=== PATIENT | male | born 1935 | race Caucasian/White ===

== ENCOUNTER → 2018-03-20 16:23 | Outpatient (CLI) | payer MEDICARE, SELFPAY ==
[2018-03-20 16:52] LABS: Add Manual Diff / Slide Review NO; Basophils Percent Auto 0.8 % (0-2); Eosinophils Percent Auto 1.9 % (2-4); Hematocrit 51.1 % (41-53); Hemoglobin 17.7 g/dL (13.5-17.5); Lymphocytes Percent Auto 30.9 % (25-40); Mean Corpuscular HGB Conc 34.6 % (30-36); Mean Corpuscular Hemoglobin 32.8 PG (26-34); Mean Corpuscular Volume 94.8 fL (80-100); Monocytes Percent Auto 8.9 % (3-14); Neutrophils Absolute Auto 4000 /uL (3000-5900); Neutrophils Percent Auto 57.5 % (50-75); Platelet Count 259 X10^3/uL (150-400); Red Blood Cell Count 5.39 X10^6/uL (4.5-5.9); Red Cell Distribution Width 13.6 % (11.6-14.8); White Blood Cell Count 6.9 X10^3/uL (4.5-11.0)
[2018-03-20 16:59] LABS: INR 1.2 (0.9-1.3); Prothrombin Time 13.5 SECONDS (10.1-12.7)
[2018-03-20 17:02] LABS: PTT Partial Thromboplastin Tim 37 SECONDS (26.4-36.2)
[2018-03-20 17:05] LABS: BUN Creatinine Ratio 26.3 (6-22); Blood Urea Nitrogen 21 mg/dL (9-20); Calcium 9.8 mg/dL (8.4-10.2); Carbon Dioxide 27 mmol/L (22-32); Chloride 104 mmol/L (98-107); Estimated Glomerular Filt Rate > 60.0 mL/min (>60); Glucose 94 mg/dL (80-110); HEMOLYSIS 30 (0-50); Potassium 4.5 mmol/L (3.4-5.1); Sodium 142 mmol/L (137-145)
[2018-03-20 17:06] LABS: Hemoglobin A1C% w Est Avg Glu 5.3 % (4.0-6.0)
[2018-03-20 17:58] LABS: Appearance Urine UA CLEAR; Bilirubin Urine UA NEGATIVE (NEGATIVE); Color Urine UA YELLOW; Glucose Urine UA NEGATIVE (Normal); Ketones Urine UA 1+ (NEGATIVE); Leukocyte Esterase Urine UA TRACE (NEGATIVE); Nitrite Urine UA Negative (Negative); Occult Blood Urine UA TRACE-LYSED (Negative); Protein Urine UA TRACE (Negative); Specific Gravity Urine UA 1.025 (1.000-1.035); Urobilinogen Urine UA 0.2 E.U./dL (0.2)
[2018-03-20 18:06] LABS: Amorphous Sediment Urine 1+; Bacteria Urine Few (2-10); RBC Urine 0-1/HPF (0-5/HPF); Squamous Epithelial Cell Urine 1-5 /HPF; WBC Urine 10-30/HPF (0-5/HPF)
[2018-03-20 18:07] LABS: Culture Indicated Urine Specimen Cultured
== END ==
PROVIDERS: Family Provider Internal Medicine; PCP Internal Medicine; Visit Provider Internal Medicine
DX: Z01.812 Encounter for preprocedural laboratory examination (principal)
CPT/HCPCS: 36415; 80048; 81001; 83036; 85025; 85610; 85730; 87086

== ENCOUNTER → 2018-03-23 15:18 | Outpatient (REF) | payer MEDICARE, SELFPAY | LOC: LAB 15:18 | PROVIDERS: Family Provider Internal Medicine; PCP Internal Medicine; Visit Provider Internal Medicine | DX: Z01.812 Encounter for preprocedural laboratory examination (principal) | CPT/HCPCS: 87797 ==

== ENCOUNTER → 2018-03-26 11:28 | Outpatient (CLI) | payer MEDICARE, SELFPAY ==
--- NOTE | 2018-03-26 | DI.RAD.S_ITS ---
PROCEDURE: XR KUB INDICATIONS: KIDNEY STONES TECHNIQUE: One view of the abdomen acquired. COMPARISON: [facility], CT, IVP (ABD & PEL WWO CONTRAST), 02/20/2016, 9:01. [facility], CR, KUB XRAY (1 VIEW ABDOMEN), 02/16/2016, 7:40. FINDINGS: Surgical changes and devices: None. Bowel: Bowel gas pattern shows a mildly dilated loop of small intestine overlying the left midabdomen. Soft tissues: Calcifications in the left kidney are again identified, with a superior pole calculus measuring 2 cm in diameter and a lower pole calculus measuring 11 mm. No right renal calculi seen. Visualized solid organ contours appear normal in size. Numerous surgical clips in the pelvis. Bones: No suspicious bony lesions. Degenerative disc disease lumbar spine. IMPRESSION: 1. Left nephrolithiasis unchanged. 2. Mildly dilated small bowel loop overlying the left kidney is nonspecific but raises possibility of sentinel loop ileus. Dictated by: Mynor Murry M.D. on 03/26/2018 at 12:33 Approved by: Mynor Murry M.D. on 03/26/2018 at 12:37
[2018-03-26 12:56] LABS: Prostate Specific Antigen < 0.064 ng/mL (0.10-4.00)
== END ==
PROVIDERS: Family Provider Internal Medicine; PCP Internal Medicine; Visit Provider Specialist
DX: N40.1 Benign prostatic hyperplasia with lower urinary tract symptoms (principal); N20.0 Calculus of kidney
CPT/HCPCS: 36415; 74018; 84153

== ENCOUNTER → 2019-02-01 12:33 | Outpatient (CLI) | payer MEDICARE, OTHER, SELFPAY ==
--- NOTE | 2019-02-01 | DI.RAD.S_ITS ---
PROCEDURE: XR HIP W PEL IF DONE LT 2V INDICATIONS: LEFT KNEE/LEFT HIP PAIN TECHNIQUE: 2 views of the hip were acquired. COMPARISON: [facility], CR, [id number] W PEL IF PERFORMED, 10/09/2017, 8:12. FINDINGS: Bones: No fractures or dislocations. No suspicious bony lesions. The visualized pelvic ring appears intact. Normal-appearing left total hip arthroplasty. No evidence of device loosening or disruption. Soft tissues: No suspicious soft tissue calcifications or masses. IMPRESSION: Normal appearance after left total hip arthroplasty without evidence of device loosening or disruption. Dictated by: Solomon Qureshi M.D. on 02/01/2019 at 13:09 Approved by: Solomon Qureshi M.D. on 02/01/2019 at 13:10
--- NOTE | 2019-02-01 | DI.RAD.S_ITS ---
PROCEDURE: XR KNEE LT 3V INDICATIONS: LEFT KNEE/LEFT HIP PAIN TECHNIQUE: 3 views of the knee were acquired. COMPARISON: [facility], , KNEE 1-2 VIEWS RIGHT, 06/15/2007, 16:28. FINDINGS: Bones: No fractures or dislocations. No suspicious bony lesions. Soft tissues: No joint effusion. No suspicious soft tissue calcifications. IMPRESSION: Prior left total knee arthroplasty with normal alignment. No evidence of device loosening or disruption. Dictated by: Solomon Qureshi M.D. on 02/01/2019 at 13:10 Approved by: Solomon Qureshi M.D. on 02/01/2019 at 13:11
[2019-02-01 13:48] LABS: Add Manual Diff / Slide Review NO; Basophils Absolute Auto 0 /uL (0-100); Basophils Percent Auto 0.6 % (0-2); Eosinophils Absolute Auto 100 /uL (0-450); Hematocrit 47.8 % (41-53); Hemoglobin 16.5 g/dL (13.5-17.5); Lymphocytes Absolute Auto 2100 /uL (1100-4500); Lymphocytes Percent Auto 28.5 % (25-40); Mean Corpuscular HGB Conc 34.5 % (30-36); Mean Corpuscular Hemoglobin 32.7 PG (26-34); Mean Corpuscular Volume 94.8 fL (80-100); Monocytes Absolute Auto 700 /uL (0-900); Monocytes Percent Auto 9.5 % (3-14); Neutrophils Absolute Auto 4300 /uL (1500-7000); Neutrophils Percent Auto 59.4 % (50-75); Platelet Count 239 X10^3/uL (150-400); Red Blood Cell Count 5.05 X10^6/uL (4.5-5.9); Red Cell Distribution Width 13.1 % (11.6-14.8); White Blood Cell Count 7.2 X10^3/uL (4.5-11.0)
[2019-02-01 14:14] LABS: C-Reactive Protein Quant < 0.5 mg/dL (<1.0)
[2019-02-01 14:28] LABS: Erythrocyte Sedimentation Rate 1 MM/HR (0-15)
[2019-02-01 15:10] LABS: Vitamin B12 950 pg/mL (239-931)
== END ==
PROVIDERS: PCP Internal Medicine; Visit Provider Internal Medicine
DX: M79.605 Pain in left leg (principal); M25.552 Pain in left hip; M16.12 Unilateral primary osteoarthritis, left hip; E53.8 Deficiency of other specified B group vitamins; Z96.642 Presence of left artificial hip joint; Z96.652 Presence of left artificial knee joint
CPT/HCPCS: 36415; 73502; 73562; 82607; 82746; 85025; 85651; 86140

== ENCOUNTER → 2019-04-06 08:57 | Outpatient (CLI) | payer MEDICARE, OTHER, SELFPAY ==
--- NOTE | 2019-04-06 09:00 | DI.ECHO.S_ITS ---
Echocardiogram Report + + :Name: HARISH SWIFT Study Date: 04/06/2019 Height: 67 in : :Hospital Exam Location: [facility] Weight: 180 lb : : Gender: Male BSA: 1.9 m2 : :: 1935 Age: 83 yrs BP: 110/80 mmHg: :Reason For Study: Dyspnea : :Ordering Physician: <No : :Ordering Physician Selected> Performed By: Maryse Page : :Referring: JEAN-PAUL VASQUEZ : + + Interpretation Summary The patient was in normal sinus rhythm during the exam. The patient had frequent PACs during the exam. Patient had short burst of narrow QRS tachycardia as well. Further characterization difficult to make. Consider Holter monitor to make sure no significant arrhythmias like A. fib. The left ventricle is normal in size. The ejection fraction is estimated to be 50-55%. There is a significant dyssynchronous contraction pattern, consistent with a conduction abnormality. The right ventricle is grossly normal size. The right ventricular systolic function is normal. No significant valvular pathology. The ascending aorta is mild-moderately enlarged. The IVC is of normal diameter and collapses greater than 50% with a sniff. This suggests a low right atrial pressure of 3 mm Hg. Procedure: A two-dimensional transthoracic echocardiogram with color flow and Doppler was performed. The study quality was technically adequate. There is no prior echocardiogram noted for this patient. The patient had frequent PACs during the exam. The patient was in normal sinus rhythm during the exam. Patient had short burst of narrow QRS tachycardia. Further characterization difficult to make. Consider Holter monitor to make sure no significant arrhythmias like A. fib. Left Ventricle: The left ventricle is normal in size. Left ventricular wall thickness is normal. There is no thrombus. The ejection fraction is estimated to be 50-55%. There is a significant dyssynchronous contraction pattern, consistent with a conduction abnormality. Diastolic parameters suggest a relaxation abnormality of the left ventricle, consistent with probable normal filling pressures. Right Ventricle: The right ventricle is grossly normal size. The right ventricular systolic function is normal. Atria: The left atrium is moderately dilated. Right atrium not well visualized. The right atrium grossly appears normal in size. There is no Doppler evidence for an interatrial shunt. Mitral Valve: There is mild mitral annular calcification. There is trace mitral regurgitation. Aortic Valve: The aortic valve is trileaflet. The aortic valve opens well. There is no aortic valve stenosis. No aortic regurgitation is present. Tricuspid Valve: The tricuspid valve is normal. There is trace tricuspid regurgitation. Pulmonary artery pressures cannot be estimated because of the lack of a measurable TR jet velocity. Pulmonic Valve: The pulmonic valve is not well visualized. There is trace pulmonic regurgitation. Great Vessels: The aortic root is normal size. The ascending aorta is mildmoderately enlarged. The pulmonary is not well visualized. The IVC is of normal diameter and collapses greater than 50% with a sniff. This suggests a low right atrial pressure of 3 mm Hg. Pericardium/ Pleura There is no pericardial effusion. There is no pleural effusion. MMode/2D Measurements & Calculations LVIDd: 4.0 cm LVOT diam: 2.5 cm LVIDs: 2.7 cm Ao root diam: 3.9 cm FS: 31.5 % asc Aorta Diam: 4.1 cm EPSS: 0.40 cm Ao Arch Diam (Prox Trans): 3.0 cm IVSd: 0.85 cm LVPWd: 0.79 cm LV quinonez. diameter/BSA (cm/m^2): 2.1 LV sys. diameter/BSA (cm/m^2): 1.4 LA A2 area: 24.2 cm2 RA long axis: 4.7 cm LA A4 area: 25.0 cm2 RA area: 14.6 cm2 LA length (vol): 6.3 cm RA vol: 38.6 ml LA vol: 81.5 ml RA : 20.0 ml/m2 LA vol index: 42.2 ml/m2 IVC diam: 1.4 cm RVD1 (basal): 4.4 cm RVD2 (mid): 3.5 cm TAPSE: 2.9 cm Doppler Measurements & Calculations Ao V2 max: 105.5 cm/sec LVOT Max Roosevelt: 83.3 cm/sec Ao V2 mean: 70.2 cm/sec LV V1 max P.8 mmHg Ao max P.5 mmHg LV V1 VTI: 18.8 cm Ao mean P.3 mmHg HEATHER(I,D): 4.0 cm2 Ao V2 VTI: 23.0 cm HEATHER(V,D): 3.8 cm2 sev ratio: 0.82 HEATHER indexed to BSA (cm^2/m^2): 2.1 MV E max roosevelt: 56.4 cm/sec PA V2 max: 49.3 cm/sec MV A max roosevelt: 84.2 cm/sec PA V2 mean: 32.5 cm/sec MV E/A: 0.67 PA mean P.47 mmHg Med Peak E' Roosevelt: 4.6 cm/sec PA Accel Time: 0.05 sec E/E' med: 12.2 Lat Peak E' Roosevelt: 6.0 cm/sec E/E' lat: 9.3 E/e' average: 10.8 MV P1/2t: 62.5 msec MV P1/2t max roosevelt: 57.1 cm/sec SV(LVOT): 91.3 ml MVA(P1/2t): 3.5 cm2 _ Reading Physician:IRMA
== END ==
PROVIDERS: PCP Internal Medicine; Visit Provider Student in an Organized Health Care Education/Training Program
DX: R06.00 Dyspnea, unspecified (principal); I77.89 Other specified disorders of arteries and arterioles; R42 Dizziness and giddiness
CPT/HCPCS: 93306

== ENCOUNTER → 2019-04-21 13:22 | Outpatient (CLI) | payer MEDICARE, OTHER, SELFPAY ==
[2019-04-21 15:17] LABS: Add Manual Diff / Slide Review NO; Basophils Absolute Auto 0 /uL (0-100); Basophils Percent Auto 0.6 % (0-2); Eosinophils Absolute Auto 100 /uL (0-450); Eosinophils Percent Auto 1.8 % (2-4); Hematocrit 49.2 % (41-53); Hemoglobin 16.5 g/dL (13.5-17.5); Lymphocytes Absolute Auto 1800 /uL (1100-4500); Lymphocytes Percent Auto 31.3 % (25-40); Mean Corpuscular HGB Conc 33.7 % (30-36); Mean Corpuscular Hemoglobin 32.8 PG (26-34); Mean Corpuscular Volume 97.4 fL (80-100); Monocytes Absolute Auto 600 /uL (0-900); Monocytes Percent Auto 9.7 % (3-14); Neutrophils Absolute Auto 3300 /uL (1500-7000); Neutrophils Percent Auto 56.6 % (50-75); Platelet Count 240 X10^3/uL (150-400); Red Blood Cell Count 5.05 X10^6/uL (4.5-5.9); Red Cell Distribution Width 13.4 % (11.6-14.8); White Blood Cell Count 5.8 X10^3/uL (4.5-11.0)
[2019-04-21 15:24] LABS: BUN Creatinine Ratio 32.5 (6-22); Blood Urea Nitrogen 26 mg/dL (9-20); Calcium 10.1 mg/dL (8.4-10.2); Carbon Dioxide 27 mmol/L (22-32); Chloride 108 mmol/L (98-107); Estimated Glomerular Filt Rate > 60.0 mL/min (>60); Glucose 66 mg/dL (80-110); HEMOLYSIS 19 (0-50); Potassium 4.7 mmol/L (3.4-5.1); Sodium 142 mmol/L (137-145)
== END ==
PROVIDERS: PCP Internal Medicine; Visit Provider Internal Medicine
DX: R31.0 Gross hematuria (principal)
CPT/HCPCS: 36415; 80048; 85025; 87086

== ENCOUNTER → 2019-06-01 08:03 | Outpatient (CLI) | payer MEDICARE, OTHER, SELFPAY ==
--- NOTE | 2019-06-01 | DI.RAD.S_ITS ---
PROCEDURE: XR CHEST 2V INDICATIONS: COUGH TECHNIQUE: 2 views of the chest were acquired. COMPARISON: None. FINDINGS: Surgical changes and devices: None. Lungs and pleura: Lungs are clear. No pleural effusions or pneumothorax. Mediastinum: Mildly tortuous thoracic aorta is seen. Heart size is normal. Bones and chest wall: No suspicious bony abnormalities. Soft tissues appear unremarkable. IMPRESSION: No acute cardiopulmonary pathology. Dictated by: Andrey Amin M.D. on 06/01/2019 at 11:38 Approved by: Andrey Amin M.D. on 06/01/2019 at 11:43
[2019-06-01 09:43] LABS: Cholesterol 221 mg/dL (140-199); HDL Cholesterol 37 mg/dL (40-60); LDL Cholesterol Calculated 146 mg/dL (<100); Magnesium 1.8 mg/dL (1.6-2.3); Triglycerides 190 mg/dL (35-150)
[2019-06-01 09:44] LABS: B Type Natriuretic Peptide < 100 (<100)
== END ==
PROVIDERS: PCP Internal Medicine; Visit Provider Internal Medicine Cardiovascular Disease
DX: I48.0 Paroxysmal atrial fibrillation (principal); I49.1 Atrial premature depolarization; I47.1 Supraventricular tachycardia; R06.02 Shortness of breath; R05 Cough; Z13.220 Encounter for screening for lipoid disorders
CPT/HCPCS: 36415; 71046; 80061; 83735; 83880

== ENCOUNTER → 2019-06-29 07:50 | Outpatient (CLI) | payer MEDICARE, OTHER, SELFPAY ==
--- NOTE | 2019-06-29 | DI.NM.S_ITS ---
PROCEDURE: NM POLLY PERF SPECT REST & STR Rest and exercise myocardial perfusion SPECT with gated imaging and ejection fraction RADIOPHARMACEUTICAL: 24.7 mCi Tc-99m sestamibi IV at rest and 27.3 mCi Tc-99m sestamibi IV at peak exercise. A two day-protocol was performed. INDICATIONS: Shortness of breath TECHNIQUE: Radiopharmaceutical was injected at peak stress test, and also at rest. SPECT images were obtained. SPECT myocardial perfusion images were displayed in short axis, horizontal long axis, and vertical long axis views. Gated images were reviewed using [employer] software. COMPARISON: None. CARDIAC STRESS: A standard Jack treadmill exercise tolerance test was performed by the patient under the supervision of an attending staff. The patient exercised for 7 minutes and 24 seconds; functional aerobic impairment (DANICA) is -35%. Hemodynamic data: There is normal blood pressure and heart rate response to exercise stress. Patient achieved 88% of maximum predicted heart rate at peak exercise. Symptoms: Patient denied chest pain during exercise. EKG: No diagnostic EKG changes of ischemia; no ectopy. FINDINGS: Raw data: There is good myocardial labeling by radiotracer. No significant motion artifacts. Ccoa-fu-wxpdo ratio is 0.32 (normal is less than 0.38 for sestamibi tracer, and less than 0.50 for thallium tracer). Left ventricle function: Gated images demonstrate normal left ventricle wall thickening. No segmental wall motion abnormality. No transient ischemic dilation; TID is 0.91 (normal less than 1.3). The left ventricle resting end-diastolic volume is 81 mL. Left ventricle stress ejection fraction is 78%; normal values are above 45%. Myocardial perfusion: There is normal distribution of activity in the left and right ventricular myocardium. No fixed or reversible perfusion defects. IMPRESSION: Low risk, normal treadmill nuclear stress test. 1) No perfusion evidence of ischemia or infarction. 2) Normal left ventricular size, wall motion, and systolic function (post stress EF 78%). 3) No ECG evidence of ischemia. 4) No angina during the study. 5) Excellent exercise tolerance (8.5 METS, DANICA -35%). Target heart rate achieved. Appropriate hemodynamic response to exercise. 6) No prior nuclear stress test available for comparison. Dictated by: Alvarado Ruiz MD on 06/30/2019 at 16:19 Approved by: Alvarado Ruiz MD on 06/30/2019 at 16:22
--- NOTE | 2019-06-29 08:51 | PM.TREADMILL ---
Cardiac Stress Test Report Referral & Results Date Patient Seen: 06/29/19 Time Patient Seen: 08:30 Requesting provider: Blake Miles Indication: SOB Rest ECG: NSR Procedure Note: Today following both written and verbal informed consent the patient was exercised according to a standard Jack protocol patient went for a total of 7 minutes 24 seconds achieving a maximum heart rate of 120 maximum systolic blood pressure of 156. This is approximately 8.5 METs. Exercise was terminated at this point because of fatigue and orthopedic pain. Patient was also given Cardiolite through a previously started Hep-Lock IV by the model technician approximately 1 minute prior to the cessation of exercise. No signs or symptoms of angina. Excellent exercise capacity for age. No change in rhythm. O2 sat greater than 95%. Impression: Low probability for ischemia. Will await perfusion imaging. Please note: Actual ECG tracings can be found in the PACS system.
== END ==
PROVIDERS: PCP Internal Medicine; Visit Provider Internal Medicine Cardiovascular Disease
DX: R06.02 Shortness of breath (principal); I48.0 Paroxysmal atrial fibrillation
CPT/HCPCS: 78452; 93016; 93017; 93018; A9502

== ENCOUNTER → 2019-10-26 07:57 | Outpatient (CLI) | payer MEDICARE, OTHER, SELFPAY ==
--- NOTE | 2019-10-26 | DI.RAD.S_ITS ---
PROCEDURE: XR KUB INDICATIONS: KIDNEY STONE TECHNIQUE: One view of the abdomen acquired. COMPARISON: [facility], CR, XR KUB, 03/26/2018, 11:33. FINDINGS: Surgical changes and devices: Surgical clips are present within the pelvis. Left hip arthroplasty is grossly intact. Bowel: Bowel gas pattern is normal. Soft tissues: Staghorn calculi are redemonstrated projecting over the left upper quadrant, similar in size and location to the prior study dated 03/26/18. No other suspicious soft tissue calcifications. Bones: No suspicious bony lesions. IMPRESSION: Staghorn calculi presumably within the left kidney. Dictated by: Jaki Jimenez M.D. on 10/26/2019 at 14:19 Approved by: Jaki Jimenez M.D. on 10/26/2019 at 14:20
== END ==
PROVIDERS: PCP Internal Medicine; Visit Provider Specialist
DX: N20.0 Calculus of kidney (principal)
CPT/HCPCS: 74018

== ENCOUNTER 2019-11-25 11:34 | Outpatient (RCR) | payer MEDICARE, OTHER, SELFPAY ==
--- NOTE | 2019-12-01 09:38 | PT.OIE ---
Current Diagnoses Mixed incontinence (11/25/19) Visit Care Team Role Provider Type Chayito Cisneros MD Primary Care Provider Non-Staff Specialty: Internal Medicine Address: [address] [place] [address], [place], [address] Email: [email or web address] Gerald Dupree MD Attending Provider Physician Referring Provider Specialty: Urology Address: [address] [place] [address], [id number] Email: Physical Therapy Initial Evaluation PT-OP-A Visit Information Start: 11/25/19 12:08 Freq: Status: Active Protocol: Document 11/25/19 12:00 [facility] (Rec: 11/25/19 12:30 [facility] [id number]) Out-Patient Physical Therapy Visit Information Visit Information Visit Type Initial Evaluation Visit Note 84 year old male with history of prostate cancer and prostatectomy with c/o urinary leakage worse during the night Visit Start Time 12:00 Visit Stop Time 12:45 Total Visit Minutes 45 Visit Number 1 Evaluation Information Evaluation Date 11/25/19 PT-OP-B Current Condition Start: 11/25/19 12:08 Freq: Status: Active Protocol: Document 11/25/19 12:00 [facility] (Rec: 11/25/19 12:30 [facility] [id number]) Current Condition History of Current Condition Onset Date symptoms are worsening in the past 4-5 months Current Complaints urinary leakage with positional changes and leaking during the night History of Current Condition history of urinary leakage that happens mostly at night. He has a history of prostate cancer in 1991. His prostate was removed but not completely taken out. Then in 2002 he had radiation. He noticed that that after surgery he would have leakage in certain sitting positions. Every once in a while he will have leakage with standing bending over the sink. Now though he is experiencing symptoms of leakage at night. He will sleep through the night and wake up and be wet. He sleeps 10pm-6am. He used to have a urge that would wake him up at night and he would get up and void. Now he is not getting that urge. This has been happening for 4-5 months now. Wears a mini pad at night and this is wet when he wakes up. He does not need a mini pad during the day. Was recently diagnosed with Afib 6 months ago. He also has some new onset of edema in his LE He does have a history of left sided hip replacement in 2018 . Had a bladder scope and felt he didn't have any symptoms for a few days afterwards. At times he will wake up at 2-3 am and be pretty dry but then by 6 am he will be wet. Prior Treatments and Tests has had testing for post void residual and it is normal. Treatment Goals Patient/Caregiver Goals Goals include eliminating urinary leakage both during the day and at night Current Functional Impairments (Reported) Functional Limitations- ADL's leaking occurs with positional changes or with leaning over the sink to wash dishes Functional Limitations- Other leaking during the night sleeping PT-OP-I Pelvic Floor Start: 11/25/19 12:08 Freq: Status: Active Protocol: Document 11/25/19 12:00 [facility] (Rec: 12/01/19 09:24 [facility] [id number]) Pelvic Floor Assessment Urine Pelvic Floor Surgery prostatectomy Urinary Symptoms Incomplete Emptying Other Urinary Symptoms night time leakage Leakage Size Large Other Leakage Causes changing positions Voiding Frequency 4-5 times per day Nocturia yes and leaking at night Urine Pad Type Depends Contraction Ability Voluntary Contraction Weak Voluntary Relaxation Weak Comments Pelvic Floor Comments external palpation for pelvic floor contraction was performed today and Edmund has difficulty facilitating a pelvic floor contraction for more than a few seconds. Endurance training will be helpful for him PT-OP-J Posture/Palpation/Skin Start: 11/25/19 12:08 Freq: Status: Active Protocol: Document 11/25/19 17:19 [facility] (Rec: 11/25/19 17:21 [facility] [id number]) Palpation Assessment Location One Palpation Location supra pubic fasica Palpation Findings Soft Tissue Tightness Palpation Details There is scar tissue and myofascial restrictions across the suprapubic fascia PT-OP-M Strength Start: 11/25/19 12:08 Freq: Status: Active Protocol: Document 11/25/19 12:00 [facility] (Rec: 11/25/19 17:19 [facility] [id number]) Trunk Strength Trunk Manual Muscle Testing Testing Position Supine Flexion 3+ Fair+ Core Stabilization decreased ability to facilitate the pelvic floor or transverse abdominal musculature Hip Strength Hip Manual Muscle Testing Right Flexion (L2) 4 Good Extension (S1) 3 Fair Abduction 4 Good External Rotation 4 Good Left Flexion (L2) 4 Good Extension (S1) 3 Fair Abduction 3 Fair External Rotation 3 Fair PT-OP-Q Treatments Start: 11/25/19 14:25 Freq: Status: Active Protocol: Document 11/25/19 12:00 [facility] (Rec: 11/25/19 14:27 [facility] [id number]) Therapeutic Exercises Supine Exercises 3 Supine Exercise Name hip Roll outs with theraband Side bilateral Equipment Used level 2 theraband Reps/Minutes 2 x 10 reps 2 Supine Exercise Name bridges Side bilateral Reps/Minutes 2 x 10 reps 1 Supine Exercise Name pelvic floor isolations Reps/Minutes 10 reps holding 2-3 seconds resting 5 seconds 2 sets of 10 reps Self-Care/Home Management Treatment Education Patient Education Home Exercise Program Other Education education on toileting strategies to help improve the amount voided at night PT-OP-T Assessment and Plan Start: 11/25/19 12:08 Freq: Status: Active Protocol: Document 11/25/19 12:00 [facility] (Rec: 12/01/19 09:24 [facility] [id number]) Physical Therapy Assessment Rehab Potential Rehabilitation Potential Good Evaluation Complexity Number of Personal Factors/Comorbidities 0 Number of Body Systems Impaired 1-2 Clinical Presentation at Evaluation Stable Impairments Impairments Activity Tolerance,Functional Activities,Soft Tissue Mobility,Strength,Tone Goals Four Impairment Decreased hip strength Short Term Goal (STG) Edmund is educated on hip exercises especially for the hip ER and abductors that support the pelvis and help to improve bladder control STG Duration 5 weeks Three Impairment urinary leakage at night and with transitional movements Intermediate Goal (LTG) Edmund is able to sleep through the night without soaking through a pad, He also has improved support of the pelvic floor to reduce day time leakage with transitional movements LTG Duration 8 weeks Two Impairment incomplete emptying of the bladder Short Term Goal (STG) with MFR and education on stretches for the anterior abdominal wall Edmund is able to improve his voiding and emptying of his bladder STG Duration 5 weeks One Impairment pelvic floor weakness with limited endurance Short Term Goal (STG) pt is educated on endurance contractions of the pelvic floor for improved support of the bladder STG Duration 4 weeks Intermediate Goal (LTG) Edmund is able to sustain a pelvic floor contraction for 10 seconds in supine and 5-10 seconds in a standing position LTG Duration 8 weeks Assessment Summary Assessment Edmund presents to physical therapy today with symptoms of urinary incontinence. He will leak during the day with certain sitting positions or if leaning over the sink. He describes newer symptoms of leakage during the night and not being able to fully void. He has a history of prostate cancer with prostatectomy in 1991. He then needed radiation in 2002. He notes that after this time he did experience some leakage with transitional movements. He was recently diagnosed with A fib 6 months ago and has a history of a left sided hip replacement in 2018. He does note some swelling in his left LE towards the end of the day. He has recently seen urology and with a post void residual test he notes he has a large amount of residual urine remaining in his bladder . With examination today he is weak in his hips Left > Right, has tightness and scar tissue present in the suprapubic fascia surrounding the bladder, and has difficulty sustaining a pelvic floor contraction. His lower abdominal musculature is also very weak. Treatment will focus on both fully emptying the bladder and improved pelvic floor strength for endurance Physical Therapy Plan Frequency and Duration Frequency of Treatment 1x/Week Duration of Treatment 8 Plan of Care Start Date 11/25/19 Plan of Care End Date 01/20/20 Therapeutic Interventions Therapeutic Interventions Home Exercise Program,Manual Therapy,Neuromuscular Re- education,Patient/Caregiver Education,Self-Care/Home Management,Soft Tissue Mobilization,Therapeutic Exercises Modalities Biofeedback Next Visit Focus/Plan Next Note Type Treatment Note Next Visit Plan Work with EMG biofeedback for pelvic floor endurance contractions, MFR over the suprapubic fascia to improve mobility, begin hip strengthening exercises
--- NOTE | 2019-12-01 09:40 | PT.OPPOC ---
Physical, Occupational & Speech Therapy At [facility] Current Diagnoses Mixed incontinence (11/25/19) Visit Care Team Role Provider Type Chayito Cisneros MD Primary Care Provider Non-Staff Specialty: Internal Medicine Address: [address] [place] [address], [address] Email: [email or web address] Gerald Dupree MD Attending Provider Physician Referring Provider Specialty: Urology Address: [address] [place] [address], [id number] Email: Plan Of Care PT-OP-T Assessment and Plan Start: 11/25/19 12:08 Freq: Status: Active Protocol: Document 11/25/19 12:00 [facility] (Rec: 12/01/19 09:24 [facility] [email or web address]) Physical Therapy Assessment Rehab Potential Rehabilitation Potential Good Evaluation Complexity Number of Personal Factors/Comorbidities 0 Number of Body Systems Impaired 1-2 Clinical Presentation at Evaluation Stable Impairments Impairments Activity Tolerance,Functional Activities,Soft Tissue Mobility,Strength,Tone Goals Four Impairment Decreased hip strength Short Term Goal (STG) Edmund is educated on hip exercises especially for the hip ER and abductors that support the pelvis and help to improve bladder control STG Duration 5 weeks Three Impairment urinary leakage at night and with transitional movements Carburizing Furnace Operator Goal (LTG) Edmund is able to sleep through the night without soaking through a pad, He also has improved support of the pelvic floor to reduce day time leakage with transitional movements LTG Duration 8 weeks Two Impairment incomplete emptying of the bladder Short Term Goal (STG) with MFR and education on stretches for the anterior abdominal wall Edmund is able to improve his voiding and emptying of his bladder STG Duration 5 weeks One Impairment pelvic floor weakness with limited endurance Short Term Goal (STG) pt is educated on endurance contractions of the pelvic floor for improved support of the bladder STG Duration 4 weeks Carburizing Furnace Operator Goal (LTG) Edmund is able to sustain a pelvic floor contraction for 10 seconds in supine and 5-10 seconds in a standing position LTG Duration 8 weeks Assessment Summary Assessment Edmund presents to physical therapy today with symptoms of urinary incontinence. He will leak during the day with certain sitting positions or if leaning over the sink. He describes newer symptoms of leakage during the night and not being able to fully void. He has a history of prostate cancer with prostatectomy in 1991. He then needed radiation in 2002. He notes that after this time he did experience some leakage with transitional movements. He was recently diagnosed with A fib 6 months ago and has a history of a left sided hip replacement in 2018. He does note some swelling in his left LE towards the end of the day. He has recently seen urology and with a post void residual test he notes he has a large amount of residual urine remaining in his bladder . With examination today he is weak in his hips Left > Right, has tightness and scar tissue present in the suprapubic fascia surrounding the bladder, and has difficulty sustaining a pelvic floor contraction. His lower abdominal musculature is also very weak. Treatment will focus on both fully emptying the bladder and improved pelvic floor strength for endurance Physical Therapy Plan Frequency and Duration Frequency of Treatment 1x/Week Duration of Treatment 8 Plan of Care Start Date 11/25/19 Plan of Care End Date 01/20/20 Therapeutic Interventions Therapeutic Interventions Home Exercise Program,Manual Therapy,Neuromuscular Re- education,Patient/Caregiver Education,Self-Care/Home Management,Soft Tissue Mobilization,Therapeutic Exercises Modalities Biofeedback Next Visit Focus/Plan Next Note Type Treatment Note Next Visit Plan Work with EMG biofeedback for pelvic floor endurance contractions, MFR over the suprapubic fascia to improve mobility, begin hip strengthening exercises Plan of Care Dates Plan of Care Start Date 11/25/19 Plan of Care End Date 01/20/20 Electronically Signed by: Aimee Shah, PT 12/01/19 0814 Please Sign and Return: I have reviewed this Plan of Care and certify that the skilled therapy services above are required to meet the patient?s needs. Physician Signature Date Printed Name and Credentials Clinical Instructor Signature Printed Name and Credentials
--- NOTE | 2020-06-12 14:31 | PT.OPDS ---
Current Diagnoses Mixed incontinence (11/25/19) Visit Care Team Role Provider Type Chayito Cisneros MD Primary Care Provider Non-Staff Specialty: Internal Medicine Address: [address], [place], [address] Email: [email or web address] Gerald Dupree MD Attending Provider Physician Referring Provider Specialty: Urology Address: [facility] [place] [address], [address] Phone: Email: Visit Number Visit Number 1 Discharge Summary PT-OP-B Current Condition Start: 11/25/19 12:08 Freq: Status: Active Protocol: Document 11/25/19 12:00 [facility] (Rec: 11/25/19 12:30 [facility] [id number]) Current Condition History of Current Condition Onset Date symptoms are worsening in the past 4-5 months Current Complaints urinary leakage with positional changes and leaking during the night History of Current Condition history of urinary leakage that happens mostly at night. He has a history of prostate cancer in 1991. His prostate was removed but not completly taken out. Then in 2002 he had radiation. He noticed that that after surgery he would have leakage in certain sitting positions. Every once in a while he will have leakage with standing bending over the sink. Now though he is experiencing symptoms of leakage at night. He will sleep through the night and wake up and be wet. He sleeps 10pm-6am. He used to have a urge that would wake him up at night and he would get up and void. Now he is not getting that urge. This has been happening for 4-5 months now. Wears a mini pad at night and this is wet when he wakes up. He does not need a mini pad during the day. Was recently diagnosed with Afib 6 months ago. He also has some new onset of edema in his LE He does have a history of left sided hip replacement in 2018 . Had a bladder scope and felt he didn't have any symptoms for a few days afterwards. At times he will wake up at 2-3 am and be pretty dry but then by 6 am he will be wet. Prior Treatments and Tests has had testing for post void residual and it is normal. Treatment Goals Patient/Caregiver Goals Goals include eliminating urinary leakage both during the day and at night Current Functional Impairments (Reported) Functional Limitations- ADL's leaking occurs with positional changes or with leaning over the sink to wash dishes Functional Limitations- Other leaking during the night sleeping PT-OP-I Pelvic Floor Start: 11/25/19 12:08 Freq: Status: Active Protocol: Document 11/25/19 12:00 [facility] (Rec: 12/01/19 09:24 [facility] [email or web address]) Pelvic Floor Assessment Urine Pelvic Floor Surgery prostatectomy Urinary Symptoms Incomplete Emptying Other Urinary Symptoms night time leakage Leakage Size Large Other Leakage Causes changing positions Voiding Frequency 4-5 times per day Nocturia yes and leaking at night Urine Pad Type Depends Contraction Ability Voluntary Contraction Weak Voluntary Relaxation Weak Comments Pelvic Floor Comments external palpation for pelvic floor contraction was performed today and Edmund has difficulty facilitating a pelvic floor contraction for more than a few seconds. Endurance training will be helpful for him PT-OP-J Posture/Palpation/Skin Start: 11/25/19 12:08 Freq: Status: Active Protocol: Document 11/25/19 17:19 [facility] (Rec: 11/25/19 17:21 [facility] [email or web address]) Palpation Assessment Location One Palpation Location supra pubic fasica Palpation Findings Soft Tissue Tightness Palpation Details There is scar tissue and myofascial restrictions across the suprapubic fascia PT-OP-M Strength Start: 11/25/19 12:08 Freq: Status: Active Protocol: Document 11/25/19 12:00 [facility] (Rec: 11/25/19 17:19 [facility] [email or web address]) Trunk Strength Trunk Manual Muscle Testing Testing Position Supine Flexion 3+ Fair+ Core Stabilization decreased ability to facilitate the pelvic floor or transverse abdominal musculature Hip Strength Hip Manual Muscle Testing Right Flexion (L2) 4 Good Extension (S1) 3 Fair Abduction 4 Good External Rotation 4 Good Left Flexion (L2) 4 Good Extension (S1) 3 Fair Abduction 3 Fair External Rotation 3 Fair PT-OP-T Assessment and Plan Start: 11/25/19 12:08 Freq: Status: Active Protocol: Document 06/12/20 14:30 [facility] (Rec: 06/12/20 14:31 [facility] [email or web address]) Physical Therapy Assessment Assessment Summary Assessment Edmund has not been seen since his initial evaluation in PT. He canceled his follow up appointment with PT. He will be DC at this time Physical Therapy Plan Discharge Physical Therapy Discharge Reasons No Longer Attending PT
== END 2020-06-13 10:58 ==
LOC: PHYS 11:34
PROVIDERS: PCP Internal Medicine; Referring Provider Specialist; Visit Provider Specialist
DX: N39.46 Mixed incontinence (principal)
CPT/HCPCS: 97110; 97161

== ENCOUNTER → 2020-02-17 19:16 | Outpatient (ROUT) | payer MEDICARE, OTHER, SELFPAY | PROVIDERS: PCP Internal Medicine; Visit Provider Internal Medicine | DX: R39.9 Unspecified symptoms and signs involving the genitourinary system (principal) | CPT/HCPCS: 87077; 87086; 87186 ==

== ENCOUNTER → 2020-04-04 08:31 | Outpatient (CLI) | payer MEDICARE, OTHER, SELFPAY ==
[2020-04-06 04:08] LABS: COVID19 Sendout Not Detected (Not Detected)
== END ==
PROVIDERS: PCP Internal Medicine; Visit Provider Physician Assistant
DX: R05 Cough (principal)
CPT/HCPCS: 87635

== ENCOUNTER → 2020-05-19 13:27 | Outpatient (CLI) | payer MEDICARE, OTHER, SELFPAY ==
[2020-05-19 14:38] LABS: RBC Morphology Normal Morphology; Total Cells Counted 100
[2020-05-19 14:39] LABS: Appearance Urine UA CLEAR; Bilirubin Urine UA NEGATIVE (NEGATIVE); Color Urine UA YELLOW; Glucose Urine UA NEGATIVE (Negative); Ketones Urine UA NEGATIVE (NEGATIVE); Leukocyte Esterase Urine UA 2+ (NEGATIVE); Nitrite Urine UA POSITIVE (Negative); Occult Blood Urine UA 3+ (Negative); Protein Urine UA TRACE (Negative); Urobilinogen Urine UA 0.2 E.U./dL (0.2)
[2020-05-19 14:43] LABS: Erythrocyte Sedimentation Rate 29 MM/HR (0-15)
[2020-05-19 14:44] LABS: Hematocrit 43.9 % (41-53); Hemoglobin 14.9 g/dL (13.5-17.5); Mean Corpuscular Hemoglobin 31.7 PG (26-34); Mean Corpuscular Volume 93.4 fL (80-100); Neutrophils Absolute Manual 3599 /uL (3000-5900); Platelet Count 287 X10^3/uL (150-400); White Blood Cell Count 5.9 X10^3/uL (4.5-11.0)
[2020-05-19 14:58] LABS: Alanine Aminotransferase 19 IU/L (<50); Albumin Globulin Ratio 1.3 (1.0-2.8); Alkaline Phosphatase 116 U/L (38-126); Aspartate Aminotransferase 25 IU/L (17-59); BUN Creatinine Ratio 21.1 (6-22); Bilirubin Total 0.6 mg/dL (0.2-1.3); Blood Urea Nitrogen 19 mg/dL (9-20); Calcium 9.9 mg/dL (8.4-10.2); Carbon Dioxide 30 mmol/L (22-32); Chloride 104 mmol/L (98-107); Estimated Glomerular Filt Rate > 60.0 mL/min (>60); Globulin 3.2 g/dL (1.7-4.1); Glucose 127 mg/dL (80-110); HEMOLYSIS < 15 (0-50); Potassium 4.3 mmol/L (3.4-5.1); Sodium 141 mmol/L (137-145); Total Protein 7.2 g/dL (6.3-8.2); Uric Acid 5.1 mg/dL (3.5-8.5)
[2020-05-19 15:07] LABS: NT-proBNP (BNP-Adult 18+) 140 pg/mL (<450)
[2020-05-19 15:08] LABS: Bacteria Urine Moderate (10-30); Culture Indicated Urine Cult Not Indicated; RBC Urine >100/HPF (0-5/HPF); Urine Comments CS ALREADY ORDERED; WBC Urine >100/HPF (0-5/HPF)
[2020-05-19 15:47] LABS: Vitamin B12 > 1000 pg/mL (239-931)
[2020-05-22 14:37] LABS: SARS-CoV19- IgM Negative (Negative)
[2020-05-22 17:36] LABS: Albumin 3.3 g/dL (2.9-4.4); Alpha-1-Globulin 0.3 g/dL (0.0-0.4); Alpha-2-Globulin 0.9 g/dL (0.4-1.0); Globulin Total 3.2 g/dL (2.2-3.9); Protein, Total 6.5 g/dL (6.0-8.5)
[2020-05-22 18:58] LABS: SARS CoV19 IgA Negative (Negative)
== END ==
PROVIDERS: PCP Internal Medicine; Referring Provider Internal Medicine; Visit Provider Internal Medicine
DX: R06.00 Dyspnea, unspecified (principal); Z87.898 Personal history of other specified conditions; R31.9 Hematuria, unspecified; G62.9 Polyneuropathy, unspecified; M10.9 Gout, unspecified; I48.91 Unspecified atrial fibrillation
CPT/HCPCS: 36415; 80053; 81001; 82607; 83880; 84155; 84165; 84550; 85025; 85651; 86769; 87077; 87086; 87186

== ENCOUNTER → 2020-12-05 19:54 | Outpatient (ROUT) | payer MEDICARE, OTHER, SELFPAY ==
[2020-12-05 20:05] LABS: Add Manual Diff / Slide Review NO; Basophils Absolute Auto 100 /uL (0-100); Basophils Percent Auto 1.2 % (0-2); Eosinophils Absolute Auto 100 /uL (0-450); Eosinophils Percent Auto 2.3 % (2-4); Hematocrit 46.7 % (41-53); Hemoglobin 15.5 g/dL (13.5-17.5); Lymphocytes Absolute Auto 1900 /uL (1100-4500); Lymphocytes Percent Auto 36.7 % (25-40); Mean Corpuscular HGB Conc 33.3 % (30-36); Mean Corpuscular Hemoglobin 32.1 PG (26-34); Mean Corpuscular Volume 96.4 fL (80-100); Monocytes Absolute Auto 500 /uL (0-900); Monocytes Percent Auto 8.8 % (3-14); Neutrophils Absolute Auto 2600 /uL (1500-7000); Platelet Count 241 X10^3/uL (150-400); Red Blood Cell Count 4.85 X10^6/uL (4.5-5.9); Red Cell Distribution Width 13.6 % (11.6-14.8); White Blood Cell Count 5.1 X10^3/uL (4.5-11.0)
[2020-12-05 20:12] LABS: Alanine Aminotransferase 21 IU/L (<50); Albumin Globulin Ratio 1.5 (1.0-2.8); Alkaline Phosphatase 95 U/L (38-126); Aspartate Aminotransferase 31 IU/L (17-59); BUN Creatinine Ratio 21.2 (6-22); Bilirubin Total 1.1 mg/dL (0.2-1.3); Blood Urea Nitrogen 18 mg/dL (9-20); Calcium 9.5 mg/dL (8.4-10.2); Carbon Dioxide 25 mmol/L (22-32); Chloride 106 mmol/L (98-107); Estimated Glomerular Filt Rate > 60.0 mL/min (>60); Globulin 2.6 g/dL (1.7-4.1); Glucose 105 mg/dL (80-110); HEMOLYSIS < 15 (0-50); Sodium 137 mmol/L (137-145); Total Protein 6.6 g/dL (6.3-8.2); Uric Acid 6.6 mg/dL (3.5-8.5)
== END ==
PROVIDERS: PCP Internal Medicine; Visit Provider Internal Medicine
DX: M10.9 Gout, unspecified (principal); Z85.46 Personal history of malignant neoplasm of prostate; I48.20 Chronic atrial fibrillation, unspecified
CPT/HCPCS: 80053; 84550; 85025

== ENCOUNTER → 2021-03-28 12:02 | Outpatient (CLI) | payer MEDICARE, OTHER, SELFPAY ==
[2021-03-28 13:00] LABS: Prostate Specific Antigen < 0.064 ng/mL (0.10-4.00)
== END ==
PROVIDERS: PCP Internal Medicine; Referring Provider Specialist; Visit Provider Specialist
DX: N40.0 Benign prostatic hyperplasia without lower urinary tract symptoms (principal)
CPT/HCPCS: 36415; 84153

== ENCOUNTER → 2021-04-04 09:50 | Outpatient (CLI) | payer MEDICARE, OTHER, SELFPAY | PROVIDERS: PCP Internal Medicine; Visit Provider Specialist | DX: N39.0 Urinary tract infection, site not specified (principal); N30.40 Irradiation cystitis without hematuria; R31.29 Other microscopic hematuria; Z85.46 Personal history of malignant neoplasm of prostate; Z87.442 Personal history of urinary calculi; Z68.28 Body mass index [BMI] 28.0-28.9, adult | CPT/HCPCS: 81002; 87086; 99213; 99214 ==

== ENCOUNTER → 2022-03-27 13:19 | Outpatient (CLI) | payer MEDICARE, OTHER, SELFPAY ==
--- NOTE | 2022-03-27 | DI.ECHO.S_ITS ---
[place] +---------+ Hospital +---------+ : : [address] : : : : [id number] : : : : Phone: [phone]+ Echocardiogram Report + + :Name: HARISH SWIFT Study Date: 03/27/2022 Height: 65 in : :[facility] ReadingLocation: Weight: 180 lb : : Gender: Male BSA: 1.9 m2 : :: 1935 Age: 86 yrs BP: 141/97 mmHg: :Reason For Study: SHORTNESS OF BREATH : :Ordering Physician: GAYATHRI, : :RAKEL Miranda Performed By: Ruth Alicea : :Referring: RAKEL TRINH : + + Interpretation Summary The ejection fraction is estimated to be 55-60%. Diastolic function is indeterminate. The right ventricle is mildly dilated. The right ventricular systolic function is normal. There is mild mitral regurgitation. Pulmonary artery pressures cannot be estimated. The ascending aorta is mildly enlarged. Paired to the prior study dated 04/06/2019, there is a slight increase in ejection fraction. Procedure: A two-dimensional transthoracic echocardiogram with color flow and Doppler was performed. The study quality was technically adequate. Comparison is made with the echocardiogram of 04/06/2019. The patient was in sinus rhythm with heart rates between 60-77 bpm during the exam. Left Ventricle: Proximal septal thickening is noted. The left ventricle is normal in size. The ejection fraction is estimated to be 55-60%. Diastolic function is indeterminate. Right Ventricle: The right ventricle is mildly dilated. The right ventricular systolic function is normal. Atria: The left atrial size is normal. Right atrial size is normal. There is no Doppler evidence for an interatrial shunt. Mitral Valve: There is a flat closure plane of the the mitral valve leaflets. There is mild mitral annular calcification. There is mild mitral regurgitation. Aortic Valve: The aortic valve is trileaflet. The aortic valve opens well. There is no aortic valve stenosis. No aortic regurgitation is present. Tricuspid Valve: The tricuspid valve is normal in structure and function. There is trace tricuspid regurgitation. Pulmonary artery pressures cannot be estimated because of the lack of a measurable TR jet velocity. Pulmonic Valve: The pulmonic valve leaflets are thin and pliable; valve motion is normal. There is mild pulmonic regurgitation. Great Vessels: The aortic root is normal size. The ascending aorta is mildly enlarged. The IVC is of normal diameter and collapses greater than 50% with a sniff. This suggests a low right atrial pressure of 3 mm Hg. Pericardium/ Pleura There is no pericardial effusion. There is no pleural effusion. MMode/2D Measurements & Calculations LVIDd: 4.4 cm LVOT diam: 2.2 cm LVIDs: 2.7 cm Ao root diam: 3.8 cm FS: 38.6 % asc Aorta Diam: 4.0 cm IVSd: 0.86 cm Ao Arch Diam (Prox Trans): 3.0 cm LVPWd: 0.89 cm LV quinonez. diameter/BSA (cm/m^2): 2.3 LV sys. diameter/BSA (cm/m^2): 1.4 LA A2 area: 21.0 cm2 RA long axis: 5.1 cm LA A4 area: 12.7 cm2 RA area: 12.6 cm2 LA length (vol): 4.3 cm RA vol: 26.3 ml LA vol: 52.1 ml RA : 13.9 ml/m2 LA vol index: 27.5 ml/m2 IVC diam: 1.5 cm RVD1 (basal): 4.0 cm RVD2 (mid): 3.6 cm TAPSE: 2.0 cm Doppler Measurements & Calculations Ao V2 max: 113.4 cm/sec LVOT Max Roosevelt: 106.2 cm/sec Ao V2 mean: 76.9 cm/sec LV V1 max P.5 mmHg Ao max P.1 mmHg LV V1 VTI: 22.5 cm Ao mean P.7 mmHg HEATHER(I,D): 3.4 cm2 Ao V2 VTI: 24.9 cm HEATHER(V,D): 3.5 cm2 sev ratio: 0.90 HEATHER indexed to BSA (cm^2/m^2): 1.8 MV E max roosevelt: 84.7 cm/sec PA V2 max: 91.4 cm/sec MV A max roosevelt: 95.9 cm/sec PA V2 mean: 61.8 cm/sec MV E/A: 0.88 PA mean P.7 mmHg Med Peak E' Roosevelt: 4.8 cm/sec PA pr(Accel): 49.9 mmHg E/E' med: 17.6 Lat Peak E' Roosevelt: 6.9 cm/sec E/E' lat: 12.2 E/e' average: 14.9 MV dec time: 0.25 sec [facility] 83.6 ml Reading Physician:03:27 PM
== END ==
PROVIDERS: PCP Internal Medicine; Referring Provider Nurse Practitioner; Visit Provider Nurse Practitioner
DX: R06.02 Shortness of breath (principal); I51.7 Cardiomegaly; I34.0 Nonrheumatic mitral (valve) insufficiency
CPT/HCPCS: 93306

== ENCOUNTER → 2022-05-02 17:49 | Outpatient (CLI) | payer MEDICARE, OTHER, SELFPAY ==
[2022-05-02 18:50] LABS: COVID19 -Nasal RAPID Negative (Negative)
== END ==
PROVIDERS: PCP Internal Medicine; Referring Provider Nurse Practitioner; Visit Provider Nurse Practitioner
DX: Z20.822 Contact with and (suspected) exposure to COVID-19 (principal)
CPT/HCPCS: 87635; C9803

== ENCOUNTER → 2022-05-03 08:13 | Outpatient (CLI) | payer MEDICARE, OTHER, SELFPAY ==
--- NOTE | 2022-05-08 09:16 | PM.PFT.1 ---
Pulmonary Function Test Referral & Results Date Patient Seen: 05/03/22 Requesting provider: Velia Marks Results: The spirometry demonstrates an FVC of 2.58 L which is 83% of predicted. The FEV1 was measured at 1.96 L which is 93% of predicted. The FEV1/FVC ratio was 76 which is 108% of predicted. Following the administration of bronchodilator there was no notable change. Lung volumes show an SVC of 2.63 L which is 71% of predicted. The diffusing capacity was measured at 23.39 which is 86% of predicted. The maximum voluntary ventilation was minimally reduced Interpretation: This study demonstrates mild reduction in SVC suggesting mild restrictive lung disease There is a minimal reduction in diffusing capacity suggesting the possibility of disease at the capillary alveolar level all this could also be considered normal Clinical correlation suggested
== END ==
PROVIDERS: PCP Internal Medicine; Referring Provider Nurse Practitioner; Visit Provider Nurse Practitioner
DX: R06.02 Shortness of breath (principal); J98.8 Other specified respiratory disorders
CPT/HCPCS: 94060; 94726; 94729

== ENCOUNTER 2022-06-16 12:20 | Emergency (ER) | payer MEDICARE, OTHER, SELFPAY ==
[2022-06-16] VITALS (8 sets, daily range): BP systolic 142–146; BP diastolic 82–85; PULSE 82–94; RESP 18–24; TEMP 36.8; O2SAT 94–95; BMI 27.3
--- NOTE | 2022-06-16 12:51 | DI.RAD.S_ITS ---
PROCEDURE: XR RIBS RT MIN 3V W CXR 1V INDICATIONS: injury TECHNIQUE: 2 views of the right ribs were acquired, along with a single view chest. COMPARISON: None. FINDINGS: Surgical changes and devices: None. Bones and chest wall: Possibly minimally displaced fractures of the anterolateral right 5th and 6th ribs. No suspicious bony lesions. Overlying soft tissues appear unremarkable. Lungs and pleura: No pleural effusions or pneumothorax. Horizontal atelectasis is seen at the left lung base. Mediastinum: Mediastinal contours appear normal. Heart size is normal. IMPRESSION: Suspected minimally displaced fractures of the anterolateral aspect of the right 5th and 6th ribs. No pleural effusion or pneumothorax. Dictated by: Toan Davies M.D. on 06/16/2022 at 13:04 Approved by: Toan Davies M.D. on 06/16/2022 at 13:07
[2022-06-16 13:34] LABS: INR 2.8 (0.9-1.3)
[2022-06-16 13:37] LABS: PTT Partial Thromboplastin Tim 51 SECONDS (26-36)
[2022-06-16 13:40] LABS: Add Manual Diff / Slide Review NO; Alanine Aminotransferase 22 IU/L (<50); Albumin 3.7 g/dL (3.5-5.0); Albumin Globulin Ratio 1.2 (1.0-2.8); Alkaline Phosphatase 97 U/L (38-126); Aspartate Aminotransferase 34 IU/L (17-59); BUN Creatinine Ratio 22.7 (6-22); Basophils Absolute Auto 0 /uL (0-100); Basophils Percent Auto 0.3 % (0-2); Bilirubin Total 1.5 mg/dL (0.2-1.3); Blood Urea Nitrogen 20 mg/dL (9-20); Calcium 8.9 mg/dL (8.4-10.2); Carbon Dioxide 22 mmol/L (22-32); Chloride 106 mmol/L (98-107); Eosinophils Absolute Auto 0 /uL (0-450); Eosinophils Percent Auto 0.4 % (2-4); Estimated Glomerular Filt Rate > 60 mL/min (>60); Globulin 3.1 g/dL (1.7-4.1); Glucose 118 mg/dL (80-110); Hematocrit 45.9 % (41-53); Hemoglobin 15.3 g/dL (13.5-17.5); Lipase 70 U/L (23-300); Lymphocytes Absolute Auto 1100 /uL (1100-4500); Lymphocytes Percent Auto 11.5 % (25-40); Mean Corpuscular HGB Conc 33.2 % (30-36); Mean Corpuscular Hemoglobin 31.8 PG (26-34); Mean Corpuscular Volume 95.7 fL (80-100); Monocytes Absolute Auto 1100 /uL (0-900); Monocytes Percent Auto 12.4 % (3-14); Neutrophils Absolute Auto 7000 /uL (1500-7000); Neutrophils Percent Auto 75.4 % (50-75); Platelet Count 188 X10^3/uL (150-400); Potassium 4.5 mmol/L (3.4-5.1); Red Cell Distribution Width 13.2 % (11.6-14.8); Sodium 136 mmol/L (137-145); Total Protein 6.8 g/dL (6.3-8.2); White Blood Cell Count 9.3 X10^3/uL (4.5-11.0)
[2022-06-16 13:41] LABS: HEMOLYSIS 78 (0-50)
--- NOTE | 2022-06-16 13:48 | ED.TRAUMA ---
HPI - Trauma General Chief Complaint: Trauma Stated Complaint: GLF injured right chest, SOB, Low grade fever, pos Time Seen by Provider: 06/16/22 13:23 Source: patient Mode of arrival: Family Vehicle Limitations: no limitations History of Present Illness HPI narrative: This is a 86-year-old male with history of atrial fibrillation on Coumadin, dyslipidemia, gout who presents with right-sided chest pain and skin tear after a fall a week ago last Friday. Patient states there was some basketball on the floor that he tripped over falling onto his right chest he is had persistent chest pain just at that area he had a skin tear at that time which he states it has been slowly healing. He denies hitting his head. He has not had increasing chest pain. He is had some shortness of breath. He denies any syncope, he is occasionally had lightheadedness. He denies abdominal, back or flank pain. He denies numbness, tingling or weakness. Patient denies fevers or chills, he has had dysuria and some frequency but no incontinence. No issues such as diarrhea, constipation or issues with bowel movements. No numbness, tingling or weakness that is new although he has some baseline neuropathy. Patient states he is had bilateral knee surgery, hip surgery, no cardiac interventions. He has had a Holter, PFT and echo which he states he was told were okay because he is had some chronic fatigue and shortness of breath. These were all in the last couple months. He defers further workup with troponin and BNP here in the emergency department. Denies any tobacco use, no alcohol, no illicit. Dr. Eid is his PCP and [facility] is his cardiology team. Related Data Home Medications Medication Instructions Recorded Confirmed aspirin 325 mg tablet ##0 02/13/13 06/05/22 ciprofloxacin HCl 500 mg tablet 500 mg PO Q12H ##0 02/13/13 06/05/22 (Cipro) allopurinol 100 mg tablet 100 mg PO BID 04/04/20 06/05/22 ascorbic acid (vitamin C) 500 mg mg PO 04/04/20 06/05/22 capsule cholecalciferol (vitamin D3) PO 04/04/20 06/05/22 ipratropium bromide 0.02 % 2.5 ml inhalation Q6H PRN 04/04/20 06/05/22 solution for inhalation magnesium PO 04/04/20 06/05/22 metoprolol succinate PO 04/04/20 06/05/22 timolol 0.25 % eye drops ophthalmic (eye) 04/04/20 06/05/22 vitamin B complex (B 1 tab PO DAILY 04/04/20 06/05/22 Complex-Vitamin B12 tablet) warfarin 2.5 mg tablet 2.5 mg PO DAILY 04/04/20 06/05/22 Previous Rx's Medication Instructions Recorded nitrofurantoin 100 mg PO BID #14 caps 06/16/22 monohydrate/macrocrystals 100 mg capsule (Macrobid) Allergies Allergy/AdvReac Type Severity Reaction Status Date / Time Iodine-Containing Allergy Unknown Uncoded 06/16/22 12:51 Latex Allergy Unknown Uncoded 06/16/22 12:51 Review of Systems Review of Systems ROS Unobtainable: All systems reviewed & are unremarkable except as noted in HPI and below Patient History Medical History History of malignant neoplasm of prostate History of nephrolithiasis Microscopic hematuria Radiation cystitis URI (upper respiratory infection) Social History Smoking Status: Never smoker Smoking Status: Never smoker alcohol intake frequency: holidays/special occasions only Alcohol type: beer Substance Use Type: does not use Exam Narrative Exam Narrative: GENERAL: Alert and oriented x three, elderly male in mild distress. HEENT: Head normocephalic, atraumatic, EOMI, pupils reactive, face symmetric, moist mucous membranes NECK: Supple, full range of motion CARDIOVASCULAR: Regular rate and rhythm without murmurs, rubs or gallops. RESPIRATORY: Breath sounds equal bilaterally, no wheezes rales or rhonchi. Positive for chest tenderness. No subcutaneous emphysema. ABDOMEN: Soft, nontender. Normoactive bowel sounds all 4 quadrants. No guarding or rebound, rigidity, no mass : No CVA tenderness EXTREMITIES: Normal range of motion, no clubbing or edema. Neurovascularly intact NEUROLOGICAL: Cranial nerves II through XII grossly intact. Moving all extremities SKIN: Warm, dry, no petechiae, no rashes or lesions. Initial Vital Signs Initial Vital Signs: Vital Signs Temperature 98.2 F 06/16/22 12:46 Pulse Rate 92 H 06/16/22 12:46 Respiratory Rate 24 06/16/22 12:46 Blood Pressure 142/84 H 06/16/22 12:46 Pulse Oximetry 95 06/16/22 12:46 Oxygen Delivery Method 06/16/22 12:46 Scores GCS Anuj coma scale eye opening: Spontaneous Gunpowder coma scale verbal response: Orientated Gunpowder coma scale motor response: Obey commands Gunpowder coma scale total score: 15 Course Orders Ordered: ED Orders 06/16/22 12:30 Urine Culture Stat Urine Microscopic Stat 06/16/22 12:51 XR ribs RT min 3V w CXR1V Stat 06/16/22 12:52 EKG-12 Lead Stat 06/16/22 13:12 CBC Auto Diff [Complete Blood Count AUTO DIFF] Stat CMP [Comprehensive Metabolic Panel] Stat Lipase Stat PTT [Partial Thromboplastin Time] Stat Prothrombin Time INR Stat Vital Signs Vital signs: Vital Signs - 8 hr 06/16/22 12:46 06/16/22 13:25 06/16/22 14:01 Temperature 98.2 F Pulse Rate 92 H 94 H 82 Respiratory Rate 24 18 23 Blood Pressure 142/84 H 145/82 H Pulse Oximetry 95 94 94 Oxygen Delivery Method Room Air Room Air Room Air 06/16/22 14:30 06/16/22 15:00 06/16/22 15:30 Temperature Pulse Rate 85 89 Respiratory Rate 22 24 Blood Pressure Pulse Oximetry 95 95 95 Oxygen Delivery Method Room Air Room Air 06/16/22 15:32 06/16/22 15:34 Temperature Pulse Rate 90 Respiratory Rate Blood Pressure 146/85 H Pulse Oximetry Oxygen Delivery Method MDM - Trauma Lab Data Result diagrams: 06/16/22 13:12 06/16/22 13:12 Labs: Lab Results 06/16/22 06/16/22 06/16/22 Range/Units 12:30 13:12 13:12 WBC 9.3 (4.5-11.0) X10^3/uL RBC 4.80 (4.5-5.9) X10^6/uL Hgb 15.3 (13.5-17.5) g/dL Hct 45.9 (41-53) % MCV 95.7 (80-100) fL MCH 31.8 (26-34) PG MCHC 33.2 (30-36) % RDW 13.2 (11.6-14.8) % Plt Count 188 (150-400) X10^3/uL Neut % (Auto) 75.4 H (50-75) % Lymph % (Auto) 11.5 L (25-40) % Perkins % (Auto) 12.4 (3-14) % Eos % (Auto) 0.4 L (2-4) % Baso % (Auto) 0.3 (0-2) % Neut # (Auto) 7000 (0404-0143) /uL Lymph # (Auto) 1100 (0599-4661) /uL Perkins # (Auto) 1100 H (0-900) /uL Eos # (Auto) 0 (0-450) /uL Baso # (Auto) 0 (0-100) /uL PT 32.0 H (10.1-12.7) SECONDS INR 2.8 H (0.9-1.3) APTT 51 H (26-36) SECONDS Sodium (137-145) mmol/L Potassium (3.4-5.1) mmol/L Chloride (98-107) mmol/L Carbon Dioxide (22-32) mmol/L BUN (9-20) mg/dL Creatinine (0.66-1.25) mg/dL Estimated GFR (>60) mL/min BUN/Creatinine Ratio (6-22) Glucose (80-110) mg/dL Calcium (8.4-10.2) mg/dL Total Bilirubin (0.2-1.3) mg/dL AST (17-59) IU/L ALT (<50) IU/L Alkaline Phosphatase (38-126) U/L Total Protein (6.3-8.2) g/dL Albumin (3.5-5.0) g/dL Globulin (1.7-4.1) g/dL Albumin/Globulin Ratio (1.0-2.8) Lipase (23-300) U/L Urine RBC 0-1/hpf D (0-5/HPF) Urine WBC 30-100/hpf H (0-5/HPF) Ur Squamous Epith Cells 0-1 /hpf (0-5/HPF) Urine Bacteria Many (>30) H (None) Ur Culture Indicated? Specimen cultured 06/16/22 Range/Units 13:12 WBC (4.5-11.0) X10^3/uL RBC (4.5-5.9) X10^6/uL Hgb (13.5-17.5) g/dL Hct (41-53) % MCV (80-100) fL MCH (26-34) PG MCHC (30-36) % RDW (11.6-14.8) % Plt Count (150-400) X10^3/uL Neut % (Auto) (50-75) % Lymph % (Auto) (25-40) % Perkins % (Auto) (3-14) % Eos % (Auto) (2-4) % Baso % (Auto) (0-2) % Neut # (Auto) (0223-6897) /uL Lymph # (Auto) (0830-1040) /uL Perkins # (Auto) (0-900) /uL Eos # (Auto) (0-450) /uL Baso # (Auto) (0-100) /uL PT (10.1-12.7) SECONDS INR (0.9-1.3) APTT (26-36) SECONDS Sodium 136 L (137-145) mmol/L Potassium 4.5 (3.4-5.1) mmol/L Chloride 106 (98-107) mmol/L Carbon Dioxide 22 (22-32) mmol/L BUN 20 (9-20) mg/dL Creatinine 0.88 (0.66-1.25) mg/dL Estimated GFR > 60 (>60) mL/min BUN/Creatinine Ratio 22.7 H (6-22) Glucose 118 H (80-110) mg/dL Calcium 8.9 (8.4-10.2) mg/dL Total Bilirubin 1.5 H (0.2-1.3) mg/dL AST 34 (17-59) IU/L ALT 22 (<50) IU/L Alkaline Phosphatase 97 (38-126) U/L Total Protein 6.8 (6.3-8.2) g/dL Albumin 3.7 (3.5-5.0) g/dL Globulin 3.1 (1.7-4.1) g/dL Albumin/Globulin Ratio 1.2 (1.0-2.8) Lipase 70 (23-300) U/L Urine RBC (0-5/HPF) Urine WBC (0-5/HPF) Ur Squamous Epith Cells (0-5/HPF) Urine Bacteria (None) Ur Culture Indicated? Urine Dip Bedside Urine Glucose Negative Bedside Urine Bilirubin - Negative Bedside Urine Ketone - Negative Urine Specific [place] 1.020 Bedside Urine Occult Blood +++ Bedside Urine pH 6.0 Bedside Urine Protein +/- 15 Bedside Urine Urobilinogen - Negative Bedside Urine Nitrite + Positive Bedside Urine Leukocytes +++ 500 Esterase Imaging Data Chest x-ray: Radiologist's Impression: [address] [address] XRay Report Signed Patient: Edmund Nix MR#: [id number] : 1935 Acct:[id number] Age/Sex: 86 / M Date of Service: 06/16/22 Loc: ED Accession Number: [id number] ?? Procedure: XR ribs RT min 3V w CXR1V Ordering Provider: Alma Rosa Fitzpatrick D.O. PROCEDURE:? XR RIBS RT MIN 3V W CXR 1V ? INDICATIONS:? injury ? TECHNIQUE:? 2 views of the right ribs were acquired, along with a single view chest.? ? COMPARISON:? None. ? FINDINGS:? ? Surgical changes and devices:? None.? ? Bones and chest wall:? Possibly minimally displaced fractures of the anterolateral right 5th and 6th ribs.? No suspicious bony lesions.? Overlying soft tissues appear unremarkable.? ? Lungs and pleura:? No pleural effusions or pneumothorax.? Horizontal atelectasis is seen at the left lung base. ? Mediastinum:? Mediastinal contours appear normal.? Heart size is normal.? ? IMPRESSION:? Suspected minimally displaced fractures of the anterolateral aspect of the right 5th and 6th ribs.? No pleural effusion or pneumothorax. ? ? Dictated by: Toan Davies M.D. on 06/16/2022 at 13:04 ? ? Approved by: Toan Davies M.D. on 06/16/2022 at 13:07?? ECG Data Attestation: I personally reviewed and interpreted this ECG as follows: Interpretation: Sinus with first-degree AV block, rate of 90 P are 232 QRS 82 and QTC of 447. No acute ST elevation depression. Patient does not have priors for comparison. MDM Narrative Medical decision making narrative: 86-year-old allergic gentleman on Coumadin who had a ground level fall over a week ago, patient has had persistent left chest pain has a skin tear. He is had persistent pain and had some shortness of breath. He is found have 2 rib fractures with no hemo or pneumothorax. Patient denies hitting his head. He is had some shortness of breath over a period of time he is had some workup even before with Holter, echo and PFTs. He defers further workup here we discussed we can add on a troponin and BNP his blood in the lab but he defers. INR is appropriate 2.8, CBC is okay CMP shows no acute changes does have white cells and nitrates in his urine in his urinary symptoms so will treat him for UTI, rib fractures he states he is plenty of pain medication at home and will follow-up with primary care and Cardiology for his longstanding dyspnea. Discharge Plan Departure Patient Disposition: Home Clinical Impression: Closed rib fracture, UTI (urinary tract infection) Instructions: DI for Rib Fracture, DI for Urinary Tract Infection (UTI) Activity Restrictions/Additional Instructions: Follow-up with your doctor about your shortness of breath and fatigue, as discussed we did not check your heart enzyme/troponin or BNP today so we have not fully evaluated from a cardiac perspective. Your imaging today does show rib fractures, 2 on the right side. Use incentive spirometer once hourly while awake. You may take Tylenol up to a 1000 mg every 6 hours as needed for pain. If you prefer can also use your narcotic pain medication at home. Your urine also shows signs of infection today. Please take antibiotic until completely gone. Prescription sent to [facility] in [place]. Please return for new or worsening chest pain, shortness of breath, passing out or lightheadedness, new vomiting, severe headaches, altered mental status, worsening swelling of extremities or other new or concerning symptoms. Prescriptions: New nitrofurantoin monohyd/m-cryst [Macrobid] 100 mg capsule 100 mg PO BID Qty: 14 0RF Rx Instructions: must administer with a meal/food No Action vitamin B complex [B Complex-Vitamin B12] Tablet 1 tab PO DAILY ascorbic acid (vitamin C) 500 mg capsule PO cholecalciferol (vitamin D3) PO magnesium PO warfarin 2.5 mg tablet 2.5 mg PO DAILY metoprolol succinate PO allopurinol 100 mg tablet 100 mg PO BID timolol 0.25 % drops ophthalmic (eye) ipratropium bromide 0.02 % solution 2.5 ml INHALATION Q6H PRN aspirin 325 MG tablet Qty: 0 ciprofloxacin HCl [Cipro] 500 MG tablet 500 mg PO Q12H Qty: 0 Referrals: Charlie Eid MD [Primary Care Provider] - Visit Report Forms: Patient Portal/API
[2022-06-16 13:53] LABS: Bacteria Urine Many (>30); Culture Indicated Urine Specimen Cultured; RBC Urine 0-1/HPF (0-5/HPF); Squamous Epithelial Cell Urine 0-1 /HPF (0-5/HPF); WBC Urine 30-100/HPF (0-5/HPF)
== END 2022-06-16 15:41 | disposition home or self-care (01) ==
PROVIDERS: Emergency Provider Emergency Medicine; PCP Internal Medicine
DX: S22.31XA Fracture of one rib, right side, initial encounter for closed fracture (principal); N39.0 Urinary tract infection, site not specified; R06.02 Shortness of breath; W18.30XA Fall on same level, unspecified, initial encounter; Z79.01 Long term (current) use of anticoagulants
CPT/HCPCS: 71101; 80053; 81003; 81015; 83690; 85025; 85610; 85730; 87077; 87086; 87186; 93005; 99284

== ENCOUNTER → 2022-06-26 10:44 | Outpatient (CLI) | payer MEDICARE, OTHER, SELFPAY | PROVIDERS: PCP Internal Medicine; Visit Provider Nurse Practitioner Family | DX: R30.0 Dysuria (principal) | CPT/HCPCS: 87077; 87086; 87186 ==

== ENCOUNTER → 2022-07-06 10:06 | Outpatient (CLI) | payer MEDICARE, OTHER, SELFPAY ==
[2022-07-06 12:40] LABS: Appearance Urine UA CLOUDY; Bilirubin Urine UA NEGATIVE (NEGATIVE); Color Urine UA YELLOW; Glucose Urine UA NEGATIVE (Negative); Ketones Urine UA NEGATIVE (NEGATIVE); Leukocyte Esterase Urine UA 3+ (NEGATIVE); Nitrite Urine UA POSITIVE (Negative); Occult Blood Urine UA 3+ (Negative); Protein Urine UA 1+ (Negative); Specific Gravity Urine UA 1.015 (1.000-1.035); Urobilinogen Urine UA 0.2 E.U./dL (0.2)
[2022-07-06 12:56] LABS: Amorphous Sediment Urine 2+; Bacteria Urine Moderate (10-30); Culture Indicated Urine Specimen Cultured; RBC Urine 5-10/HPF (0-5/HPF); WBC Urine 10-30/HPF (0-5/HPF)
== END ==
PROVIDERS: PCP Internal Medicine; Visit Provider Nurse Practitioner Critical Care Medicine
DX: N39.0 Urinary tract infection, site not specified (principal)
CPT/HCPCS: 81001; 87077; 87086; 87186

== ENCOUNTER 2022-07-06 10:35 | Observation (INO) | payer MEDICARE, OTHER, SELFPAY ==
[2022-07-06] VITALS (26 sets, daily range): BP systolic 95–130; BP diastolic 59–92; PULSE 75–131; RESP 18–43; TEMP 37.2–38.8; O2SAT 92–98; BMI 28.5
--- NOTE | 2022-07-06 10:54 | DI.RAD.S_ITS ---
PROCEDURE: XR CHEST 1V INDICATIONS: suspected sepsis TECHNIQUE: One view of the chest was acquired. COMPARISON: [facility], CR, XR CHEST 2V, 06/01/2019, 8:43. FINDINGS: Surgical changes and devices: None. Lungs and pleura: Left basilar atelectasis and or infiltrate Mediastinum: Mediastinal contours appear normal. Heart size is normal. Bones and chest wall: No suspicious bony lesions. Overlying soft tissues appear unremarkable. Generalized decrease in osseous mineralization noted. IMPRESSION: Mild left basilar atelectasis and or infiltrate Approved by: Jemal Wright M.D. on 07/06/2022 at 10:32
[2022-07-06] MEDS: SODIUM CHLORIDE 0.9% 1,000 ML 1000 ML IV ×2 (11:17→14:40)
--- NOTE | 2022-07-06 11:35 | ED_ITS ---
HPI - General Adult General Chief complaint: Urogenital-Male Stated complaint: Bladder inf. sent from [facility] Time Seen by Provider: 07/06/22 11:22 Source: patient Mode of arrival: Ambulatory History of Present Illness HPI narrative: 86-year-old gentleman with a history of hypertension, prostate cancer post prostatectomy with recurrence and radiation, anticoagulated on warfarin for paroxysmal atrial fibrillation presents with urinary tract symptoms. He has had recurrent urinary tract infections over last month has been treated with 3 cou rses of antibiotics, cultures from June 18 and June 26 both are growing out E coli pansensitive. He was seen initially at urgent care complaining of increasing dysuria within 24 hours of stopping his Keflex. Significant tachycardia at 121 afebrile. He is not complaining of chest, ab dominal pain, flank pain. He is not noting palpitations or dyspnea but states that he generally does not feel well and it still feels like he has a bladder infection. With his history of prostate cancer and treatment he does need to stand to void completely he feels he does empty completely. Will check postvoid residual to confirm this to make sure that isn't complicating his overall issues. Related Data Home Medications Medication Instructions Recorded Confirmed aspirin 325 mg tablet ##0 02/13/13 06/26/22 ciprofloxacin HCl 500 mg tablet 500 mg PO Q12H ##0 02/13/13 06/26/22 (Cipro) allopurinol 100 mg tablet 100 mg PO BID 04/04/20 06/26/22 ascorbic acid (vitamin C) 500 mg mg PO 04/04/20 06/26/22 capsule cholecalciferol (vitamin D3) PO 04/04/20 06/26/22 ipratropium bromide 0.02 % 2.5 ml inhalation Q6H PRN 04/04/20 06/26/22 solution for inhalation magnesium PO 04/04/20 06/26/22 metoprolol succinate PO 04/04/20 06/26/22 timolol 0.25 % eye drops ophthalmic (eye) 04/04/20 06/26/22 vitamin B complex (B 1 tab PO DAILY 04/04/20 06/26/22 Complex-Vitamin B12 tablet) warfarin 2.5 mg tablet 2.5 mg PO DAILY 04/04/20 06/26/22 Previous Rx's Medication Instructions Recorded nitrofurantoin 100 mg PO BID #14 caps 06/16/22 monohydrate/macrocrystals 100 mg capsule (Macrobid) Allergies Allergy/AdvReac Type Severity Reaction Status Date / Time Iodine-Containing Allergy Unknown Uncoded 06/26/22 11:04 Latex Allergy Unknown Uncoded 06/26/22 11:04 Review of Systems Review of Systems Narrative: Remainder of complete review of systems is otherwise unremarkable except for that included in the HPI. Patient History Medical History History of malignant neoplasm of prostate History of nephrolithiasis Microscopic hematuria Radiation cystitis URI (upper respiratory infection) Social History Smoking Status: Never smoker Smoking Status: Never smoker alcohol intake frequency: holidays/special occasions only Alcohol type: beer Substance Use Type: does not use Exam Initial Vital Signs Initial Vital Signs: Vital Signs Temperature 98.9 F 07/06/22 10:49 Pulse Rate 103 H 07/06/22 10:49 Respiratory Rate 18 07/06/22 10:49 Blood Pressure 128/92 H 07/06/22 10:49 Pulse Oximetry 98 07/06/22 10:49 Oxygen Delivery Method 07/06/22 10:49 General: Healthy appearing, in no acute distress. Able to give a complete and coherent history. Well-nourished well-developed HEENT: Moist mucous membranes, normal sclera with reactive pupils, Neck: No JVD, supple Respiratory: Lungs are clear to auscultation, no wheezing no rales no rhonchi. Full and symmetrical air movement Cardiac: Tachycardic without murmurs Abdomen: Soft, nontender, good bowel tones, no flank pain Skin: Warm and dry, no rashes Neurologic: Grossly neurologically intact with no obvious asymmetries or abnormalities Extremities: No trauma, well perfused Psych: Cooperative, appropriate insight and affect Course Orders Ordered: ED Orders 07/06/22 10:54 XR chest 1V Stat EKG-12 Lead Stat RT Consult Eval and Treat NOW 07/06/22 11:00 Blood Culture Stat Complete Blood Count AUTO DIFF Stat Comprehensive Metabolic Panel Stat Lactate (Lactic Acid) Stat Lipase Stat Procalcitonin Stat 07/06/22 12:35 COVID19 -Nasal RAPID/Pre-Proc Stat 07/06/22 13:53 CT abdomen pelvis wo con Stat 07/06/22 17:45 BMP [Basic Metabolic Panel] Stat CBC Auto Diff [Complete Blood Count AUTO DIFF] Stat Lactate (Lactic Acid) Stat Sodium Chloride (Normal Saline 0.9%) 1,000 mls @ 150 mls/hr IV CONT BABATUNDE Sodium Chloride (Normal Saline 0.9%) 1,000 mls @ 150 mls/hr IV CONT BABATUNDE Discontinued Medications Sodium Chloride (Normal Saline 0.9%) 1,000 mls @ 1,000 mls/hr IV BOLUS ONE Stop: 07/06/22 11:53 Last Infusion: 07/06/22 12:32 Dose: 0 mls/hr Documented By: Admin: 07/06/22 11:17 Dose: 1,000 mls/hr Documented By: DAVE Ceftriaxone Sodium 2,000 mg/ (Sodium Chloride) 100 mls @ 200 mls/hr IV NOW ONE Stop: 07/06/22 13:53 Last Infusion: 07/06/22 15:20 Dose: 0 mls/hr Documented By: Admin: 07/06/22 14:39 Dose: 200 mls/hr Documented By: JARED Sodium Chloride (Normal Saline 0.9%) 1,000 mls @ 1,000 mls/hr IV BOLUS ONE Stop: 07/06/22 15:08 Last Infusion: 07/06/22 16:34 Dose: 0 mls/hr Documented By: Admin: 07/06/22 14:40 Dose: 1,000 mls/hr Documented By: JARED Vital Signs Vital signs: Vital Signs - 8 hr 07/06/22 10:49 07/06/22 11:13 07/06/22 11:30 Temperature 98.9 F Pulse Rate 103 H 119 H Respiratory Rate 18 Blood Pressure 128/92 H 103/67 Pulse Oximetry 98 95 Oxygen Delivery Method Room Air Room Air 07/06/22 11:30 07/06/22 12:00 07/06/22 12:00 Temperature Pulse Rate 92 H 75 Respiratory Rate 22 23 Blood Pressure 99/63 Pulse Oximetry 95 94 Oxygen Delivery Method 07/06/22 12:18 07/06/22 12:18 07/06/22 12:30 Temperature Pulse Rate 94 H Respiratory Rate 23 Blood Pressure 101/68 95/68 Pulse Oximetry 95 Oxygen Delivery Method 07/06/22 12:30 07/06/22 13:00 07/06/22 13:00 Temperature Pulse Rate 86 95 H Respiratory Rate 23 22 Blood Pressure 97/67 Pulse Oximetry 94 94 Oxygen Delivery Method 07/06/22 13:30 07/06/22 13:30 07/06/22 14:00 Temperature Pulse Rate 95 H Respiratory Rate 26 H Blood Pressure 108/63 110/74 Pulse Oximetry Oxygen Delivery Method 07/06/22 14:00 07/06/22 14:30 07/06/22 15:00 Temperature Pulse Rate 90 92 H 95 H Respiratory Rate 25 H 30 H 27 H Blood Pressure Pulse Oximetry 95 96 96 Oxygen Delivery Method 07/06/22 15:30 07/06/22 16:00 07/06/22 16:23 Temperature Pulse Rate 96 H 102 H Respiratory Rate 28 H 29 H Blood Pressure 128/66 Pulse Oximetry 92 96 Oxygen Delivery Method 07/06/22 16:23 07/06/22 16:30 07/06/22 17:00 Temperature Pulse Rate 128 H 127 H 99 H Respiratory Rate 27 H 34 H 26 H Blood Pressure Pulse Oximetry 94 93 94 Oxygen Delivery Method 07/06/22 17:30 07/06/22 17:33 07/06/22 17:33 Temperature Pulse Rate 127 H 129 H Respiratory Rate 25 H 24 Blood Pressure 125/83 Pulse Oximetry 93 94 Oxygen Delivery Method Medical Decision Making Lab Data Result diagrams: 07/06/22 11:00 07/06/22 11:00 Labs: Lab Results 07/06/22 07/06/22 07/06/22 Range/Units 11:00 11:00 11:00 WBC 12.3 H (4.5-11.0) X10^3/uL RBC 4.91 (4.5-5.9) X10^6/uL Hgb 15.5 (13.5-17.5) g/dL Hct 45.9 (41-53) % MCV 93.5 (80-100) fL MCH 31.6 (26-34) PG MCHC 33.8 (30-36) % RDW 13.1 (11.6-14.8) % Plt Count 289 (150-400) X10^3/uL Neut % (Auto) 74.8 (50-75) % Lymph % (Auto) 12.6 L (25-40) % [place] % (Auto) 11.8 (3-14) % Eos % (Auto) 0.4 L (2-4) % Baso % (Auto) 0.4 (0-2) % Neut # (Auto) 9200 H (4188-5383) /uL Lymph # (Auto) 1600 (4180-7115) /uL [place] # (Auto) 1500 H (0-900) /uL Eos # (Auto) 0 (0-450) /uL Baso # (Auto) 100 (0-100) /uL Sodium 138 (137-145) mmol/L Potassium 4.1 (3.4-5.1) mmol/L Chloride 106 (98-107) mmol/L Carbon Dioxide 22 (22-32) mmol/L BUN 20 (9-20) mg/dL Creatinine 0.97 (0.66-1.25) mg/dL Estimated GFR > 60 (>60) mL/min BUN/Creatinine Ratio 20.6 (6-22) Glucose 120 H (80-110) mg/dL Lactate 1.4 (0.7-2.1) mmol/L Calcium 9.4 (8.4-10.2) mg/dL Total Bilirubin 1.1 (0.2-1.3) mg/dL AST 25 (17-59) IU/L ALT 24 (<50) IU/L Alkaline Phosphatase 112 (38-126) U/L Total Protein 7.2 (6.3-8.2) g/dL Albumin 4.0 (3.5-5.0) g/dL Globulin 3.2 (1.7-4.1) g/dL Albumin/Globulin Ratio 1.3 (1.0-2.8) Lipase 102 (23-300) U/L Procalcitonin 0.07 (<0.5) ng/mL SARS-CoV-2 (PCR) (Negative) 07/06/22 Range/Units 12:35 WBC (4.5-11.0) X10^3/uL RBC (4.5-5.9) X10^6/uL Hgb (13.5-17.5) g/dL Hct (41-53) % MCV (80-100) fL MCH (26-34) PG MCHC (30-36) % RDW (11.6-14.8) % Plt Count (150-400) X10^3/uL Neut % (Auto) (50-75) % Lymph % (Auto) (25-40) % [place] % (Auto) (3-14) % Eos % (Auto) (2-4) % Baso % (Auto) (0-2) % Neut # (Auto) (8151-5597) /uL Lymph # (Auto) (6971-7985) /uL [place] # (Auto) (0-900) /uL Eos # (Auto) (0-450) /uL Baso # (Auto) (0-100) /uL Sodium (137-145) mmol/L Potassium (3.4-5.1) mmol/L Chloride (98-107) mmol/L Carbon Dioxide (22-32) mmol/L BUN (9-20) mg/dL Creatinine (0.66-1.25) mg/dL Estimated GFR (>60) mL/min BUN/Creatinine Ratio (6-22) Glucose (80-110) mg/dL Lactate (0.7-2.1) mmol/L Calcium (8.4-10.2) mg/dL Total Bilirubin (0.2-1.3) mg/dL AST (17-59) IU/L ALT (<50) IU/L Alkaline Phosphatase (38-126) U/L Total Protein (6.3-8.2) g/dL Albumin (3.5-5.0) g/dL Globulin (1.7-4.1) g/dL Albumin/Globulin Ratio (1.0-2.8) Lipase (23-300) U/L Procalcitonin (<0.5) ng/mL SARS-CoV-2 (PCR) Negative (Negative) Imaging Data Chest x-ray: Radiologist's Impression: FINDINGS:? ? Surgical changes and devices:? None.? ? Lungs and pleura:? Left basilar atelectasis and or infiltrate ? Mediastinum:? Mediastinal contours appear normal.? Heart size is normal.? ? Bones and chest wall:? No suspicious bony lesions.? Overlying soft tissues appear unremarkable.? Generalized decrease in osseous mineralization noted. ? IMPRESSION:? Mild left basilar atelectasis and or infiltrate ? ? ? Approved by: Jemal Wright M.D. on 07/06/2022 at 10:32? CT scan - abdomen/pelvis: Radiologist's Impression: FINDINGS: ? Lower thorax: The lung bases are clear.? Heart size normal.? No hiatal hernia. ? Liver:? Normal in size and attenuation. No contour deformity present. ? Biliary system:? Cholelithiasis without CT evidence of acute cholecystitis ? Pancreas:? Unremarkable without mass or inflammation evident. ? Spleen:? Normal in size and density. ? Adrenals:? Normal morphology and density. ? Reproductive system:? Surgical clips noted in the prostate bed.? Probable prostatectomy.? Urinary bladder unremarkable. ? Urinary system:? And bilateral renal cysts are similar prior exam.? Nonobstructing right renal calculi measure up to 1.5 cm, increased in size and number compared to the prior exam.? No hydronephrosis bilaterally. ? Gastrointestinal system:? The bowel is unremarkable without evidence of bowel obstruction or inflammation. The stomach appears unremarkable. ? Appendix:? No findings to suggest acute appendicitis. ? Peritoneal spaces:? No mesenteric or retroperitoneal adenopathy.? No free air.? No free fluid.? ? Vasculature:? The IVC, aorta and iliac vasculature are unremarkable. ? Abdominal wall:? Abdominal wall intact without evidence of ventral or inguinal hernias. ? Musculoskeletal:? Normal bone mineralization.? No acute fractures.? Large posterior osteophyte at L1-2 results in moderate central stenosis.? Left hip arthroplasty present. ? IMPRESSION: ? 1. Nonobstructing left renal calculi measure up to 0.5 cm, increased in size and number from prior exam.? No hydronephrosis bilaterally.? Bilateral renal cysts unchanged. ? 2. Probable prostatectomy.? Normal urinary bladder. ? 3. Cholelithiasis without CT evidence of acute cholecystitis? Approved by: Jemal Wright M.D. on 07/06/2022 at 14:30? ECG Data Interpretation: Sinus rhythm with mild arrhythmia, rate 95 1st degree block No acute ischemia MDM Narrative Medical decision making narrative: 86-year-old gentleman with recurrent pansensitive E coli infection. Has so far been treated with nitrofurantoin than Keflex and has symptoms within 24 hours of discontinuing. He is significantly tachycardic but not showing signs of sepsis at this time. He is having dysuria. Postvoid residual is less than 20 cc so he is completely emptying his bladder. CT scan of the abdomen was done to see if there were other complicating factors, he does have a nonobstructing left renal calculi that is half a cm, note of increased size and more stones than prior exam however he has no hydronephrosis and bilateral renal cysts are unchanged. There is no other evidence of infection or obvious anatomic complication. In the emergency department he is given 2 g of ceftriaxone based on the 2 most recent cultures. Labs do not show obvious sepsis his heart rate had come down from 120 to 95 range after initial L of fluid. Review findings of the CT scan with Dr. Lewis, neurology. He may in fact have a seeded stone in his kidney. The CT scan does not look like he has of the fistula of any type. Dr. Lewis suggested continued antibiotics for an extended period, office follow-up with cystoscopy in anticipation of discussion of how to get rid of the renal calculus. To explained this plan to the patient and he clinically looks worse. He is pale, complaining of feeling weak, heart rate is back into the 120-130 range and remains in sinus rhythm. I believe that he is still sick enough that IV antibiotics to avoid returning tomorrow with a full diagnosis of sepsis is going to be the most appropriate course of action. Will contact the hospitalist. his is bringing in all medications to confirm dosing. Discharge Plan Departure Patient Disposition: Admitted As Inpatient Clinical Impression: Bladder infection, acute, Calculus, renal, Tachycardia Prescriptions: No Action vitamin B complex [B Complex-Vitamin B12] Tablet 1 tab PO DAILY ascorbic acid (vitamin C) 500 mg capsule PO cholecalciferol (vitamin D3) PO magnesium PO warfarin 2.5 mg tablet 2.5 mg PO DAILY metoprolol succinate PO allopurinol 100 mg tablet 100 mg PO BID timolol 0.25 % drops ophthalmic (eye) ipratropium bromide 0.02 % solution 2.5 ml INHALATION Q6H PRN aspirin 325 MG tablet Qty: 0 ciprofloxacin HCl [Cipro] 500 MG tablet 500 mg PO Q12H Qty: 0 nitrofurantoin monohyd/m-cryst [Macrobid] 100 mg capsule 100 mg PO BID Qty: 14 0RF Rx Instructions: must administer with a meal/food Referrals: Charlie Eid MD [Primary Care Provider] -
[2022-07-06 12:03] LABS: Add Manual Diff / Slide Review NO; Basophils Absolute Auto 100 /uL (0-100); Basophils Percent Auto 0.4 % (0-2); Eosinophils Absolute Auto 0 /uL (0-450); Eosinophils Percent Auto 0.4 % (2-4); Hematocrit 45.9 % (41-53); Hemoglobin 15.5 g/dL (13.5-17.5); Lymphocytes Absolute Auto 1600 /uL (1100-4500); Lymphocytes Percent Auto 12.6 % (25-40); Mean Corpuscular HGB Conc 33.8 % (30-36); Mean Corpuscular Hemoglobin 31.6 PG (26-34); Mean Corpuscular Volume 93.5 fL (80-100); Monocytes Absolute Auto 1500 /uL (0-900); Monocytes Percent Auto 11.8 % (3-14); Neutrophils Absolute Auto 9200 /uL (1500-7000); Neutrophils Percent Auto 74.8 % (50-75); Platelet Count 289 X10^3/uL (150-400); Red Blood Cell Count 4.91 X10^6/uL (4.5-5.9); Red Cell Distribution Width 13.1 % (11.6-14.8); White Blood Cell Count 12.3 X10^3/uL (4.5-11.0)
[2022-07-06 12:11] LABS: Alanine Aminotransferase 24 IU/L (<50); Albumin Globulin Ratio 1.3 (1.0-2.8); Alkaline Phosphatase 112 U/L (38-126); Aspartate Aminotransferase 25 IU/L (17-59); BUN Creatinine Ratio 20.6 (6-22); Bilirubin Total 1.1 mg/dL (0.2-1.3); Blood Urea Nitrogen 20 mg/dL (9-20); Calcium 9.4 mg/dL (8.4-10.2); Carbon Dioxide 22 mmol/L (22-32); Chloride 106 mmol/L (98-107); Estimated Glomerular Filt Rate > 60 mL/min (>60); Globulin 3.2 g/dL (1.7-4.1); Glucose 120 mg/dL (80-110); HEMOLYSIS < 15 (0-50); Lipase 102 U/L (23-300); Potassium 4.1 mmol/L (3.4-5.1); Sodium 138 mmol/L (137-145); Total Protein 7.2 g/dL (6.3-8.2)
[2022-07-06 12:12] LABS: Lactate (Lactic Acid) 1.4 mmol/L (0.7-2.1)
[2022-07-06 12:27] LABS: Procalcitonin 0.07 ng/mL (<0.5)
[2022-07-06 13:16] LABS: COVID19 -Nasal RAPID Negative (Negative)
--- NOTE | 2022-07-06 13:53 | DI.CT.S_ITS ---
PROCEDURE: CT ABDOMEN PELVIS WO CON INDICATIONS: recurrent UTI, h/o prostate cancer TECHNIQUE: After the administration of oral contrast, 5 mm thick sections acquired from the diaphragms to the symphysis. 5 mm coronal and sagittal reformats were performed. For radiation dose reduction, the following was used: automated exposure control, adjustment of mA and/or kV according to patient size. COMPARISON: [facility], CT, ABDOMEN/PELVIS WITH CONTRAST, 06/07/2016, 10:38. FINDINGS: Lower thorax: The lung bases are clear. Heart size normal. No hiatal hernia. Liver: Normal in size and attenuation. No contour deformity present. Biliary system: Cholelithiasis without CT evidence of acute cholecystitis Pancreas: Unremarkable without mass or inflammation evident. Spleen: Normal in size and density. Adrenals: Normal morphology and density. Reproductive system: Surgical clips noted in the prostate bed. Probable prostatectomy. Urinary bladder unremarkable. Urinary system: And bilateral renal cysts are similar prior exam. Nonobstructing right renal calculi measure up to 1.5 cm, increased in size and number compared to the prior exam. No hydronephrosis bilaterally. Gastrointestinal system: The bowel is unremarkable without evidence of bowel obstruction or inflammation. The stomach appears unremarkable. Appendix: No findings to suggest acute appendicitis. Peritoneal spaces: No mesenteric or retroperitoneal adenopathy. No free air. No free fluid. Vasculature: The IVC, aorta and iliac vasculature are unremarkable. Abdominal wall: Abdominal wall intact without evidence of ventral or inguinal hernias. Musculoskeletal: Normal bone mineralization. No acute fractures. Large posterior osteophyte at L1-2 results in moderate central stenosis. Left hip arthroplasty present. IMPRESSION: 1. Nonobstructing left renal calculi measure up to 0.5 cm, increased in size and number from prior exam. No hydronephrosis bilaterally. Bilateral renal cysts unchanged. 2. Probable prostatectomy. Normal urinary bladder. 3. Cholelithiasis without CT evidence of acute cholecystitis Approved by: Jemal Wright M.D. on 07/06/2022 at 14:30
[2022-07-06] MEDS: cefTRIAXone 2,000 MG in SODIUM CHLORIDE 0.9% 100 ML 200 MG IV (14:39)
[2022-07-06 18:04] LABS: Add Manual Diff / Slide Review NO; Basophils Absolute Auto 100 /uL (0-100); Basophils Percent Auto 0.8 % (0-2); Eosinophils Absolute Auto 0 /uL (0-450); Hematocrit 41.2 % (41-53); Hemoglobin 14.1 g/dL (13.5-17.5); Lymphocytes Absolute Auto 1100 /uL (1100-4500); Lymphocytes Percent Auto 9.9 % (25-40); Mean Corpuscular HGB Conc 34.2 % (30-36); Mean Corpuscular Hemoglobin 31.9 PG (26-34); Mean Corpuscular Volume 93.4 fL (80-100); Monocytes Absolute Auto 1000 /uL (0-900); Monocytes Percent Auto 9.1 % (3-14); Neutrophils Absolute Auto 8900 /uL (1500-7000); Neutrophils Percent Auto 80.2 % (50-75); Platelet Count 213 X10^3/uL (150-400); Red Blood Cell Count 4.41 X10^6/uL (4.5-5.9); Red Cell Distribution Width 13.3 % (11.6-14.8)
[2022-07-06 18:26] LABS: Lactate (Lactic Acid) 1.3 mmol/L (0.7-2.1)
[2022-07-06 18:27] LABS: BUN Creatinine Ratio 17.2 (6-22); Blood Urea Nitrogen 15 mg/dL (9-20); Calcium 8.5 mg/dL (8.4-10.2); Carbon Dioxide 21 mmol/L (22-32); Chloride 108 mmol/L (98-107); Estimated Glomerular Filt Rate > 60 mL/min (>60); Glucose 128 mg/dL (80-110); HEMOLYSIS < 15 (0-50); Sodium 138 mmol/L (137-145)
--- NOTE | 2022-07-06 19:33 | P.HP_ITS ---
History of Present Illness History of Present Illness Date Patient Seen: 07/06/22 Time Patient Seen: 19:33 Date of Onset of Symptoms: 07/06/22 Chief complaint: Bladder inf. sent from [facility] Narrative: This pleasant gentleman with extensive urological history including hx of prostate cancer, hx of nephrolithiasis, and radiation cystitis presented to ED from walk in clinic after failing two rounds of oral antibiotics (nitrofurantoin then keflex) now having chills nausea tachycardia found to be leukocytic mildly with nonobstructing 0.5mm L renal calculus as well as E coli bacteriuria pansensitive per walk in clinic culture. His PMH is otherwise sig for paroxysmal afib for which he takes warfarin without recent dose modifications. He also notes he broke a couple ribs last month but he is mostly recovered at this point. At this time he feels basically ok just bored. Urinating frequently into urinal. Feels ok to stand up - usually he just leaves the house for the mailbox in last few years. Lives with Brandy. Patient History Medical History History of malignant neoplasm of prostate History of nephrolithiasis Microscopic hematuria Radiation cystitis URI (upper respiratory infection) Family & Social History Safety & Behavioral: Feels Safe in Current Yes Environment Been Physically Hurt or No Threatened By a Person Tobacco & Substance use: Smoking Status Never smoker alcohol intake frequency holiday/special occasion Substance Use Type does not use Meds Home Medications and Allergies Home Medications Medication Instructions Recorded Confirmed Type allopurinol 100 mg tablet 100 mg PO BID 04/04/20 07/06/22 History ascorbic acid (vitamin C) 500 mg 500 mg PO DAILY 04/04/20 07/06/22 History capsule ipratropium bromide 0.02 % 2.5 ml inhalation Q6H PRN 04/04/20 06/26/22 History solution for inhalation magnesium PO 04/04/20 06/26/22 History timolol 0.25 % eye drops 1 drp ophthalmic (eye) DAILY 04/04/20 07/06/22 History vitamin B complex (B 1 tab PO DAILY 04/04/20 07/06/22 History Complex-Vitamin B12 tablet) warfarin 2.5 mg tablet 2.5 mg PO DAILY 04/04/20 07/06/22 History amoxicillin 500 mg capsule 2,000 mg PO NOW PRN Disinfection 07/06/22 07/06/22 History atorvastatin 20 mg tablet 20 mg PO BEDTIME 07/06/22 07/06/22 History cholecalciferol (vitamin D3) 50 50 mcg PO DAILY 07/06/22 07/06/22 History mcg (2,000 unit) tablet hydrocodone 5 mg-acetaminophen 325 1 tab PO Q4-6H PRN Pain (Scale 07/06/22 07/06/22 History mg tablet Score 1-3) metoprolol succinate 25 mg 12.5 mg PO DAILY 07/06/22 07/06/22 History tablet,extended release 24 hr Allergies Allergy/AdvReac Type Severity Reaction Status Date / Time Iodine-Containing Allergy Unknown Uncoded 06/26/22 11:04 Latex Allergy Unknown Uncoded 06/26/22 11:04 Review of Systems Review of Systems Narrative: all systems reviewed and negative except as otherwise documented in HPI Exam Vital Signs (past 8 hours): - 07/06/22 12:00 07/06/22 12:00 07/06/22 12:18 Pulse Rate 75 Respiratory Rate 23 Blood Pressure 99/63 101/68 Pulse Oximetry 94 07/06/22 12:18 07/06/22 12:30 07/06/22 12:30 Pulse Rate 94 H 86 Respiratory Rate 23 23 Blood Pressure 95/68 Pulse Oximetry 95 94 07/06/22 13:00 07/06/22 13:00 07/06/22 13:30 Pulse Rate 95 H Respiratory Rate 22 Blood Pressure 97/67 108/63 Pulse Oximetry 94 07/06/22 13:30 07/06/22 14:00 07/06/22 14:00 Pulse Rate 95 H 90 Respiratory Rate 26 H 25 H Blood Pressure 110/74 Pulse Oximetry 95 07/06/22 14:30 07/06/22 15:00 07/06/22 15:30 Pulse Rate 92 H 95 H 96 H Respiratory Rate 30 H 27 H 28 H Blood Pressure Pulse Oximetry 96 96 92 07/06/22 16:00 07/06/22 16:23 07/06/22 16:23 Pulse Rate 102 H 128 H Respiratory Rate 29 H 27 H Blood Pressure 128/66 Pulse Oximetry 96 94 07/06/22 16:30 07/06/22 17:00 07/06/22 17:30 Pulse Rate 127 H 99 H 127 H Respiratory Rate 34 H 26 H 25 H Blood Pressure Pulse Oximetry 93 94 93 07/06/22 17:33 07/06/22 17:33 07/06/22 18:00 Pulse Rate 129 H Respiratory Rate 24 Blood Pressure 125/83 130/70 Pulse Oximetry 94 07/06/22 18:00 07/06/22 18:30 07/06/22 18:30 Pulse Rate 105 H 102 H Respiratory Rate 29 H 26 H Blood Pressure 130/77 Pulse Oximetry 92 92 07/06/22 19:00 07/06/22 19:00 Pulse Rate 124 H Respiratory Rate 22 Blood Pressure 104/78 Pulse Oximetry 94 Oxygen Delivery Method Room Air Narrative Exam Narrative: pleasant older gentleman lying on ED gurney Const General: cooperative and well developed [facility] Head: normocephalic and atraumatic Eyes General: appearance normal, both eyes and all related structures Resp Other: clear to auscultation bilaterally Cardio Other: tachycardic, S1/S2 GI Other: soft nontender nondistended no CVA tenderness to palpation Skin General: no rashes or lesions noted Neuro General: patient alert, patient awake, patient oriented x3, moves all extremities and no focal motor deficits Extrem General: full ROM and no pedal edema Psych Mental Status: mental status grossly normal Speech and Movement: speech and movement normal Objective Labs Result Diagrams: 07/06/22 17:57 07/06/22 17:57 Labs: Laboratory Results - last 24 hr 07/06/22 07/06/22 07/06/22 11:00 11:00 11:00 WBC 12.3 H RBC 4.91 Hgb 15.5 Hct 45.9 MCV 93.5 MCH 31.6 MCHC 33.8 RDW 13.1 Plt Count 289 Neut % (Auto) 74.8 Lymph % (Auto) 12.6 L [place] % (Auto) 11.8 Eos % (Auto) 0.4 L Baso % (Auto) 0.4 Neut # (Auto) 9200 H Lymph # (Auto) 1600 [place] # (Auto) 1500 H Eos # (Auto) 0 Baso # (Auto) 100 Sodium 138 Potassium 4.1 Chloride 106 Carbon Dioxide 22 BUN 20 Creatinine 0.97 Estimated GFR > 60 BUN/Creatinine Ratio 20.6 Glucose 120 H Lactate 1.4 Calcium 9.4 Total Bilirubin 1.1 AST 25 ALT 24 Alkaline Phosphatase 112 Total Protein 7.2 Albumin 4.0 Globulin 3.2 Albumin/Globulin Ratio 1.3 Lipase 102 Procalcitonin 0.07 SARS-CoV-2 (PCR) 07/06/22 07/06/22 07/06/22 12:35 17:57 17:57 WBC 11.0 RBC 4.41 L Hgb 14.1 Hct 41.2 MCV 93.4 MCH 31.9 MCHC 34.2 RDW 13.3 Plt Count 213 Neut % (Auto) 80.2 H Lymph % (Auto) 9.9 L [place] % (Auto) 9.1 Eos % (Auto) 0.0 L Baso % (Auto) 0.8 Neut # (Auto) 8900 H Lymph # (Auto) 1100 [place] # (Auto) 1000 H Eos # (Auto) 0 Baso # (Auto) 100 Sodium 138 Potassium 4.0 Chloride 108 H Carbon Dioxide 21 L BUN 15 Creatinine 0.87 Estimated GFR > 60 BUN/Creatinine Ratio 17.2 Glucose 128 H Lactate Calcium 8.5 Total Bilirubin AST ALT Alkaline Phosphatase Total Protein Albumin Globulin Albumin/Globulin Ratio Lipase Procalcitonin SARS-CoV-2 (PCR) Negative 07/06/22 17:57 WBC RBC Hgb Hct MCV MCH MCHC RDW Plt Count Neut % (Auto) Lymph % (Auto) [place] % (Auto) Eos % (Auto) Baso % (Auto) Neut # (Auto) Lymph # (Auto) [place] # (Auto) Eos # (Auto) Baso # (Auto) Sodium Potassium Chloride Carbon Dioxide BUN Creatinine Estimated GFR BUN/Creatinine Ratio Glucose Lactate 1.3 Calcium Total Bilirubin AST ALT Alkaline Phosphatase Total Protein Albumin Globulin Albumin/Globulin Ratio Lipase Procalcitonin SARS-CoV-2 (PCR) Assessment & Plan Assessment & Plan narrative: #Recurrent UTI thought to be E. coli, with #putative infected recurrent L nonobstructive nephrolithiasis continue IVF and rocephin Dr. Lewis discussed case in ED, recommends outpt cystoscopy to address nephrolithiasis after acute infection is resolved #Paroxysmal atrial fibrillation continue home warfarin and metoprolol, monitor INR #hx of gout continue home allpurinol #hyperlipidemia continue home atorvastatin #glaucoma continue home drops dispo: admit obs to [facility] for IVF and abx Code: Full PCP: Dr. Eid MDM: Brandy [phone] diet: heart healthy DVT: lovenox Time Spent With Patient Critical Care time: I spent a total of [] minutes of critical care time on this patient's care today; this time is exclusive of procedural time.
--- NOTE | 2022-07-06 20:09 | PC.NURSE ---
pt attempted to use urinal on his own, He got the majority on the floor, I assisted Demetrice with placing a condom catheter to help decrease the need to get out of bed during the night.
[2022-07-06] MEDS: SODIUM CHLORIDE 0.9% 1,000 ML 125 ML IV (20:30)
[2022-07-06] MEDS: allopurinoL 100 MG TABLET PO (22:20)
[2022-07-06] MEDS: ACETAMINOPHEN 325 MG TABLET 650 MG PO (22:20)
[2022-07-06] MEDS: ATORVASTATIN 20 MG TABLET PO (22:20)
[2022-07-07] VITALS (9 sets, daily range): BP systolic 102–126; BP diastolic 62–95; PULSE 67–99; RESP 16–22; TEMP 36.2–38.1; O2SAT 91–98
[2022-07-07] MEDS: SODIUM CHLORIDE 0.9% 1,000 ML 125 ML IV ×3 (02:18→19:34)
--- NOTE | 2022-07-07 07:13 | PM.PN.1 ---
Subjective Subjective Date Patient Seen: 07/07/22 Interval history: 86-year-old gentleman with previous prostate cancer subsequent radiation cystitis, history of nephrolithiasis, paroxysmal AFib warfarin anticoagulation was admitted overnight with recurrent UTI. He Was treated with Macrobid for 7 days on June 16, recurrent symptoms and on June 26 was placed on Keflex 500 mg q.i.d. for 7 days. Return to the hospital yesterday with ongoing symptoms. CT scan revealed a nonobstructing left renal calculus. Dr. Lewis was contacted who recommended prolonged antibiotics and outpatient follow-up with him for a cystoscopy. Patient reports he continues to but is feeling better overall. He is not having any suprapubic pain, back pain, or groin pain. He does still have slight dysuria. Urine is clearing, it was dark yesterday. He typically sees Dr. Dupree. Exam Vital Signs (past 8 hours): - 07/07/22 00:00 07/07/22 04:50 Temperature 99.1 F 98.0 F Pulse Rate 99 H Respiratory Rate 20 Blood Pressure 113/62 Pulse Oximetry 98 Oxygen Flow Rate 0 Oxygen Delivery Method Room Air Oxygen Flow Rate 0 Narrative Exam Narrative: GEN: Alert and oriented x 3, NAD HEENT:NC, Face symmetric CHEST: Respiratory excursions symmetric, CTAB CV: RRR, no M/R/G ABD: Soft, NT/ND, BT present in all 4 quadrants, no organomegaly or masses EXTR: warm, well perfused, no C/C/E SKIN: warm and dry, no rash NEURO: Alert and oriented x 3, nonfocal Objective Labs Result Diagrams: 07/07/22 08:45 07/07/22 08:45 Labs: Laboratory Results - last 24 hr 07/06/22 07/06/22 07/06/22 11:00 11:00 11:00 WBC 12.3 H RBC 4.91 Hgb 15.5 Hct 45.9 MCV 93.5 MCH 31.6 MCHC 33.8 RDW 13.1 Plt Count 289 Neut % (Auto) 74.8 Lymph % (Auto) 12.6 L [place] % (Auto) 11.8 Eos % (Auto) 0.4 L Baso % (Auto) 0.4 Neut # (Auto) 9200 H Lymph # (Auto) 1600 [place] # (Auto) 1500 H Eos # (Auto) 0 Baso # (Auto) 100 Sodium 138 Potassium 4.1 Chloride 106 Carbon Dioxide 22 BUN 20 Creatinine 0.97 Estimated GFR > 60 BUN/Creatinine Ratio 20.6 Glucose 120 H Lactate 1.4 Calcium 9.4 Total Bilirubin 1.1 AST 25 ALT 24 Alkaline Phosphatase 112 Total Protein 7.2 Albumin 4.0 Globulin 3.2 Albumin/Globulin Ratio 1.3 Lipase 102 Procalcitonin 0.07 SARS-CoV-2 (PCR) 07/06/22 07/06/22 07/06/22 12:35 17:57 17:57 WBC 11.0 RBC 4.41 L Hgb 14.1 Hct 41.2 MCV 93.4 MCH 31.9 MCHC 34.2 RDW 13.3 Plt Count 213 Neut % (Auto) 80.2 H Lymph % (Auto) 9.9 L [place] % (Auto) 9.1 Eos % (Auto) 0.0 L Baso % (Auto) 0.8 Neut # (Auto) 8900 H Lymph # (Auto) 1100 [place] # (Auto) 1000 H Eos # (Auto) 0 Baso # (Auto) 100 Sodium 138 Potassium 4.0 Chloride 108 H Carbon Dioxide 21 L BUN 15 Creatinine 0.87 Estimated GFR > 60 BUN/Creatinine Ratio 17.2 Glucose 128 H Lactate Calcium 8.5 Total Bilirubin AST ALT Alkaline Phosphatase Total Protein Albumin Globulin Albumin/Globulin Ratio Lipase Procalcitonin SARS-CoV-2 (PCR) Negative 07/06/22 17:57 WBC RBC Hgb Hct MCV MCH MCHC RDW Plt Count Neut % (Auto) Lymph % (Auto) [place] % (Auto) Eos % (Auto) Baso % (Auto) Neut # (Auto) Lymph # (Auto) [place] # (Auto) Eos # (Auto) Baso # (Auto) Sodium Potassium Chloride Carbon Dioxide BUN Creatinine Estimated GFR BUN/Creatinine Ratio Glucose Lactate 1.3 Calcium Total Bilirubin AST ALT Alkaline Phosphatase Total Protein Albumin Globulin Albumin/Globulin Ratio Lipase Procalcitonin SARS-CoV-2 (PCR) [facility] Medical History History of malignant neoplasm of prostate History of nephrolithiasis Microscopic hematuria Radiation cystitis URI (upper respiratory infection) Social History household members: spouse Smoking Status: Never smoker Assessment & Plan Assessment & Plan narrative: 1. Recurrent urinary tract infection, likely E coli Previous urine cultures have been positive for pansensitive E coli. Will continue Rocephin. Plan outpatient follow-up with Urology, Dr. Dupree. Patient to be on prolonged antibiotics until follow-up. 2. Paroxysmal atrial fibrillation Remains on warfarin 2.5 mg daily. INR was not completed on admission. Will obtain a stat INR this morning. 3. Gout Continue allopurinol 4. Hyperlipidemia Continue atorvastatin 5. Gout Continue glaucoma eye drops 6. Previous radiation cystitis No present symptoms 7. Nephrolithiasis Outpatient follow-up as noted planned for his nonobstructive left-sided renal calculus measuring 0.5 cm on imaging Code status Full Prophylaxis On warfarin Disposition Pending. Time Spent With Patient Critical Care time: I spent a total of [] minutes of critical care time on this patient's care today; this time is exclusive of procedural time. Quality VTE Deep Vein Thrombosis/Pulmonary Embolism Present on Admission: No
[2022-07-07] MEDS: ASCORBIC ACID 500 MG TABLET PO (08:34)
[2022-07-07] MEDS: allopurinoL 100 MG TABLET PO ×2 (08:34→19:34)
[2022-07-07] MEDS: METOPROLOL ER 25 MG TABLET 12.5 MG PO (08:34)
[2022-07-07] MEDS: WARFARIN 5 MG TABLET 2.5 MG PO (08:35)
[2022-07-07 09:07] LABS: Add Manual Diff / Slide Review NO; Basophils Absolute Auto 0 /uL (0-100); Basophils Percent Auto 0.4 % (0-2); Eosinophils Absolute Auto 0 /uL (0-450); Eosinophils Percent Auto 0.1 % (2-4); Hematocrit 41.3 % (41-53); Hemoglobin 14.1 g/dL (13.5-17.5); Lymphocytes Absolute Auto 1100 /uL (1100-4500); Lymphocytes Percent Auto 9.8 % (25-40); Mean Corpuscular HGB Conc 34.1 % (30-36); Mean Corpuscular Hemoglobin 31.9 PG (26-34); Mean Corpuscular Volume 93.4 fL (80-100); Monocytes Absolute Auto 1000 /uL (0-900); Monocytes Percent Auto 8.6 % (3-14); Neutrophils Absolute Auto 8900 /uL (1500-7000); Neutrophils Percent Auto 81.1 % (50-75); Platelet Count 222 X10^3/uL (150-400); Red Blood Cell Count 4.42 X10^6/uL (4.5-5.9)
[2022-07-07 09:13] LABS: INR 3.4 (0.9-1.3); Prothrombin Time 39.8 SECONDS (10.1-12.7)
[2022-07-07] MEDS: TIMOLOL 0.25% OPHTH 1 DROPS EYE-BOTH (09:13)
[2022-07-07 10:14] LABS: Alanine Aminotransferase 17 IU/L (<50); Albumin 3.2 g/dL (3.5-5.0); Albumin Globulin Ratio 1.1 (1.0-2.8); Alkaline Phosphatase 84 U/L (38-126); Aspartate Aminotransferase 22 IU/L (17-59); BUN Creatinine Ratio 16.4 (6-22); Bilirubin Total 1.7 mg/dL (0.2-1.3); Blood Urea Nitrogen 12 mg/dL (9-20); Calcium 8.7 mg/dL (8.4-10.2); Carbon Dioxide 23 mmol/L (22-32); Chloride 108 mmol/L (98-107); Estimated Glomerular Filt Rate > 60 mL/min (>60); Globulin 2.9 g/dL (1.7-4.1); Glucose 154 mg/dL (80-110); HEMOLYSIS < 15 (0-50); Sodium 136 mmol/L (137-145); Total Protein 6.1 g/dL (6.3-8.2)
--- NOTE | 2022-07-07 13:54 | CM.DANOTE ---
Initial Discharge Planning Note: Met with patient and spouse. Introduced self and role. Payer: Medicare and [facility] PCP: Charlie Eid 86 year old male admitted yesterday with continued dysuria having failed two rounds of oral antibiotics, small nonobstructing L renal calculus and e coli bacteriuria per walk in culture. Patient started on IV antibiotics. Notes state pt will have outpatient cystoscopy. Patient and spouse live in their own home and are both independent in ADLs and drive. Patient desires to return to former living situation when discharges. Plan: Follow for needs. When stable return home with spouse. JASWINDER Discharge Planning/Care Management CM Discharge Assessment Start: 07/07/22 13:52 Freq: Status: Active Protocol: Document 07/07/22 13:52 (Rec: 07/07/22 13:54 [id number]) Discharge Planning Assessment Assigned Electrical Controls Engineer Alina Castañeda RN/DCP Advance Directives? No History Provided By Patient Prior Living Arrangements House Household Members spouse Type of transporation used prior to Drives own vehicle admit Independent with ADL's Yes Is patient alert and oriented? Yes Caregiver for Another No Barriers to Discharge No Discharge Plan Home Referrals Initiated None needed Review Status In Process Next Review Type Continued Stay Review
[2022-07-07] MEDS: cefTRIAXone 2,000 MG in SODIUM CHLORIDE 0.9% 100 ML 200 MG IV (14:39)
[2022-07-07] MEDS: ACETAMINOPHEN 325 MG TABLET 650 MG PO (17:35)
[2022-07-07] MEDS: ATORVASTATIN 20 MG TABLET PO (19:34)
[2022-07-08] MEDS: TIMOLOL 0.25% OPHTH 1 DROPS EYE-BOTH ×3 (01:19→08:12)
[2022-07-08] MEDS: SODIUM CHLORIDE 0.9% 1,000 ML 125 ML IV ×2 (03:15→10:45)
[2022-07-08 05:21] VITALS: BP 119/75; PULSE 72; RESP 17; TEMP 36.6; O2SAT 97
[2022-07-08 06:27] LABS: Add Manual Diff / Slide Review NO; Basophils Absolute Auto 0 /uL (0-100); Basophils Percent Auto 0.4 % (0-2); Eosinophils Absolute Auto 100 /uL (0-450); Eosinophils Percent Auto 0.8 % (2-4); Hematocrit 38.1 % (41-53); Lymphocytes Absolute Auto 1000 /uL (1100-4500); Lymphocytes Percent Auto 12.1 % (25-40); Mean Corpuscular Hemoglobin 31.6 PG (26-34); Mean Corpuscular Volume 92.9 fL (80-100); Monocytes Absolute Auto 1100 /uL (0-900); Monocytes Percent Auto 12.8 % (3-14); Neutrophils Absolute Auto 6400 /uL (1500-7000); Neutrophils Percent Auto 73.9 % (50-75); Platelet Count 177 X10^3/uL (150-400); Red Blood Cell Count 4.11 X10^6/uL (4.5-5.9); Red Cell Distribution Width 13.3 % (11.6-14.8); White Blood Cell Count 8.6 X10^3/uL (4.5-11.0)
[2022-07-08 06:35] LABS: INR 3.2 (0.9-1.3); Prothrombin Time 37.6 SECONDS (10.1-12.7)
[2022-07-08 06:42] LABS: Alanine Aminotransferase 16 IU/L (<50); Albumin 2.8 g/dL (3.5-5.0); Alkaline Phosphatase 69 U/L (38-126); Aspartate Aminotransferase 25 IU/L (17-59); BUN Creatinine Ratio 15.3 (6-22); Bilirubin Total 0.9 mg/dL (0.2-1.3); Blood Urea Nitrogen 11 mg/dL (9-20); Calcium 8.4 mg/dL (8.4-10.2); Carbon Dioxide 23 mmol/L (22-32); Chloride 109 mmol/L (98-107); Estimated Glomerular Filt Rate > 60 mL/min (>60); Globulin 2.8 g/dL (1.7-4.1); Glucose 97 mg/dL (80-110); HEMOLYSIS < 15 (0-50); Potassium 3.8 mmol/L (3.4-5.1); Sodium 135 mmol/L (137-145); Total Protein 5.6 g/dL (6.3-8.2)
[2022-07-08 07:49] VITALS: BP 140/84; PULSE 86; RESP 18; TEMP 37; O2SAT 94
[2022-07-08] MEDS: ASCORBIC ACID 500 MG TABLET PO (08:11)
[2022-07-08] MEDS: METOPROLOL ER 25 MG TABLET 12.5 MG PO (08:11)
[2022-07-08] MEDS: allopurinoL 100 MG TABLET PO (08:11)
[2022-07-08 08:41] VITALS: PULSE 81
[2022-07-08 11:00] VITALS: BP 97/65; PULSE 76; RESP 16; TEMP 36.7; O2SAT 95
--- NOTE | 2022-07-08 11:54 | P.DS_ITS ---
History of Present Illness History of Present Illness Chief complaint: Bladder inf. sent from [facility] Narrative: This pleasant gentleman with extensive urological history including hx of prostate cancer, hx of nephrolithiasis, and radiation cystitis presented to ED from walk in clinic after failing two rounds of oral antibiotics (nitrofurantoin then keflex) now having chills nausea tachycardia found to be leukocytic mildly with nonobstructing 0.5mm L renal calculus as well as E coli bacteriuria pansensitive per walk in clinic culture. His PMH is otherwise sig for paroxysmal afib for which he takes warfarin without recent dose modifications. He also notes he broke a couple ribs last month but he is mostly recovered at this point. At this time he feels basically ok just bored. Urinating frequently into urinal.? Feels ok to stand up - usually he just leaves the house for the mailbox in last few years.? Lives with Brandy. Discharge Providers Provider Date of admission: 07/06/22 19:45 Discharge Date: 07/08/22 Primary care physician: Charlie Eid MD Discharge provider: Bang Tarango, Summary Hospital Course Discharge Diagnosis: 1. Recurrent urinary tract infection, likely E coli Previous urine cultures have been positive for pansensitive E coli.? Will continue Rocephin.? Plan outpatient follow-up with Urology, Dr. Dupree.? Patient to be on prolonged antibiotics until follow-up. 2. Paroxysmal atrial fibrillation Remains on warfarin 2.5 mg daily.? INR was not completed on admission.? Will obtain a stat INR this morning. 3. Gout Continue allopurinol 4. Hyperlipidemia Continue atorvastatin 5. Gout Continue glaucoma eye drops 6. Previous radiation cystitis No present symptoms 7. Nephrolithiasis Outpatient follow-up as noted planned for his nonobstructive left-sided renal calculus measuring 0.5 cm on imaging Hospital Course: 86-year-old gentleman with previous prostate cancer subsequent radiation c ystitis, history of nephrolithiasis, paroxysmal AFib warfarin anticoagulation was admitted overnight with recurrent UTI.? He Was treated with Macrobid for 7 days on June 16, recurrent symptoms and on June 26 was placed on Keflex 500 mg q.i.d. for 7 days.? Return to the hospital yesterday with ongoing symptoms.? CT scan revealed a nonobstructing left renal calculus.? Dr. Lewis was contacted who recommended prolonged antibiotics and outpatient follow-up with him for a cystoscopy. Dr. Dupree alerted to patient's hospitalization and will follow-up with him in clinic for stone management. In the meantime patient will take duracef 500mg BID for 2 weeks given pansensitive E. coli. Time Spent with Patient Time spent: Greater than 30 minutes Exam Vital Signs (past 8 hours): - 07/08/22 05:21 07/08/22 07:49 07/08/22 08:41 Temperature 97.9 F 98.6 F Pulse Rate 72 86 81 Respiratory Rate 17 18 Blood Pressure 119/75 140/84 Pulse Oximetry 97 94 Oxygen Flow Rate 0 07/08/22 11:00 Temperature 98.1 F Pulse Rate 76 Respiratory Rate 16 Blood Pressure 97/65 Pulse Oximetry 95 Oxygen Flow Rate 0 Oxygen Delivery Method Room Air Oxygen Flow Rate 0 Narrative Exam Narrative: GEN: Alert and oriented x 3, NAD HEENT:NC, Face symmetric CHEST: Respiratory excursions symmetric, CTAB CV: RRR, no M/R/G ABD: Soft, NT/ND, BT present in all 4 quadrants, no organomegaly or masses EXTR: warm, well perfused, no C/C/E SKIN: warm and dry, no rash NEURO: Alert and oriented x 3, nonfocal Objective Labs Result Diagrams: 07/08/22 06:16 07/08/22 06:16 Labs: Laboratory Results - last 24 hr 07/08/22 07/08/22 07/08/22 06:16 06:16 06:16 WBC 8.6 RBC 4.11 L Hgb 13.0 L Hct 38.1 L MCV 92.9 MCH 31.6 MCHC 34.0 RDW 13.3 Plt Count 177 Neut % (Auto) 73.9 Lymph % (Auto) 12.1 L [place] % (Auto) 12.8 Eos % (Auto) 0.8 L Baso % (Auto) 0.4 Neut # (Auto) 6400 Lymph # (Auto) 1000 L [place] # (Auto) 1100 H Eos # (Auto) 100 Baso # (Auto) 0 PT 37.6 H INR 3.2 H Sodium 135 L Potassium 3.8 Chloride 109 H Carbon Dioxide 23 BUN 11 Creatinine 0.72 Estimated GFR > 60 BUN/Creatinine Ratio 15.3 Glucose 97 Calcium 8.4 Total Bilirubin 0.9 AST 25 ALT 16 Alkaline Phosphatase 69 Total Protein 5.6 L Albumin 2.8 L Globulin 2.8 Albumin/Globulin Ratio 1.0 PFSH Medical History History of malignant neoplasm of prostate History of nephrolithiasis Microscopic hematuria Radiation cystitis URI (upper respiratory infection) Social History household members: spouse Smoking Status: Never smoker Discharge Plan Discharge Plan Patient Disposition: Home Provider Discharge Comment: 1. Continue antibiotics for 2 weeks 2. Please ensure you are drinking plenty of water to stay hydrated 3. Follow-up with Dr. Dupree next week for possible lithotripsy 4. Return to the emergency department for fevers, chills, worsening urinary symptoms, back pain, nausea or vomiting or inability to hold down meds Discharge orders & Medications Prescriptions: New cefadroxil 500 mg capsule 500 mg PO BID Qty: 28 0RF Continued vitamin B complex [B Complex-Vitamin B12] Tablet 1 tab PO DAILY ascorbic acid (vitamin C) 500 mg capsule 500 mg PO DAILY warfarin 2.5 mg tablet 2.5 mg PO DAILY allopurinol 100 mg tablet 100 mg PO BID timolol 0.25 % drops 1 drp ophthalmic (eye) DAILY ipratropium bromide 0.02 % solution 2.5 ml INHALATION Q6H PRN atorvastatin 20 mg Tablet 20 mg PO BEDTIME hydrocodone-acetaminophen 5-325 mg Tablet 1 tab PO Q4-6H PRN (Reason: Pain (Scale Score 1-3)) Rx Instructions: 1-2 tabs PRN metoprolol succinate 25 mg Tablet Extended Release 24 Hr 12.5 mg PO DAILY cholecalciferol (vitamin D3) 50 mcg (2,000 unit) Tablet 50 mcg PO DAILY Discontinued amoxicillin 500 mg Capsule 2,000 mg PO NOW PRN (Reason: Disinfection) Rx Instructions: Take four capsules by mouth 1 hour before dental appointments Follow up/Referrals: Charlie Eid MD [Primary Care Provider] - Diet/Activity/Treatments Diet: Diet as Tolerated and Regular Activity: As tolerated Discharge Data Primary Care Provider: Charlie Eid Quality VTE Deep Vein Thrombosis/Pulmonary Embolism Present on Admission: No
--- NOTE | 2022-07-08 11:56 | CM.DPC ---
DCP Cont: Per MD, pt medically stable for discharge. Pt to go home via spouse POV. No further needs at this time. Miranda Hankins RN/DCP
--- NOTE | 2022-07-08 13:03 | PC.NURSE ---
Discharge Note Patient A&O, VSS, RA, no complaints of pain/discomfort. Patient agreeable to discharge plan. Discharge packet reviewed with patient, all questions/concerns addressed. PIV/TELE discontinued. Patient able to dress self and pack all belongings. Patient taken down via wheelchair to POV.
--- NOTE | 2022-07-22 16:18 | PC.NURSE ---
Late Entry; Ceftriaxone infusion initiated 07/07 at 1439 complete at 1510.
== END 2022-07-08 13:00 | disposition home or self-care (01) ==
LOC: ED 18:08 → AC 07-07 12:19
PROVIDERS: Family Medicine; Admitting Provider Family Medicine; Emergency Provider Emergency Medicine; PCP Internal Medicine; Referring Provider Emergency Medicine; Visit Provider Family Medicine
DX: N30.90 Cystitis, unspecified without hematuria (principal); B96.20 Unspecified Escherichia coli [E. coli] as the cause of diseases classified elsewhere; R00.0 Tachycardia, unspecified; N20.0 Calculus of kidney; I10 Essential (primary) hypertension; I48.0 Paroxysmal atrial fibrillation; M10.9 Gout, unspecified; E78.5 Hyperlipidemia, unspecified; Z85.46 Personal history of malignant neoplasm of prostate; Z79.01 Long term (current) use of anticoagulants; Z20.822 Contact with and (suspected) exposure to COVID-19; L97.516 Non-pressure chronic ulcer of other part of right foot with bone involvement without evidence of necrosis
CPT/HCPCS: 36415; 51798; 71045; 74176; 80048; 80053; 81001; 83605; 83690; 84145; 85025; 85610; 87040; 87077; 87086; 87186; 87635; 93005; 96361; 96365; 96366; 99283; 99284; C9803; G0378; J0696

== ENCOUNTER → 2022-07-10 11:00 | Outpatient (CLI) | payer MEDICARE, OTHER, SELFPAY ==
[2022-07-06 23:06] VITALS: BMI 28.5
--- NOTE | 2022-07-10 11:01 | DI.RAD.S_ITS ---
PROCEDURE: XR KUB INDICATIONS: kidney calculus TECHNIQUE: One view of the abdomen acquired. COMPARISON: [facility], CT, CT ABDOMEN PELVIS WO CON, 07/06/2022, 14:16. [facility], CR, XR KUB, 10/26/2019, 8:01. FINDINGS: Surgical changes and devices: None. Bowel: Bowel gas pattern is normal. Soft tissues: Multiple staghorn stones in left kidney measuring up to 1.6 cm are again identified. No right renal calculi. No definitive ureteral stones. Visualized solid organ contours appear normal in size. Bones: No suspicious bony lesions. Left hip arthroplasty. 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 Degenerative disc and facet disease in lumbar spine. IMPRESSION: Multiple right renal calculi are present. Dictated by: Evette Cleveland M.D. on 07/10/2022 at 14:06 Approved by: Evette Cleveland M.D. on 07/10/2022 at 14:08
== END ==
PROVIDERS: PCP Internal Medicine; Referring Provider Specialist; Visit Provider Specialist
DX: N20.0 Calculus of kidney (principal); N30.40 Irradiation cystitis without hematuria; Z87.442 Personal history of urinary calculi; Z85.46 Personal history of malignant neoplasm of prostate; Z87.440 Personal history of urinary (tract) infections
CPT/HCPCS: 74018; 81002; 87086; 99215

== ENCOUNTER → 2022-07-10 15:21 | Outpatient (CLI) | payer MEDICARE, OTHER, SELFPAY ==
[2022-07-06 23:06] VITALS: BMI 28.5
== END ==
PROVIDERS: PCP Internal Medicine; Visit Provider Specialist
DX: N30.00 Acute cystitis without hematuria (principal)
CPT/HCPCS: 87086

== ENCOUNTER → 2022-08-15 09:27 | Outpatient (CLI) | payer MEDICARE, OTHER, SELFPAY ==
[2022-07-06 23:06] VITALS: BMI 28.5
== END ==
PROVIDERS: PCP Internal Medicine; Referring Provider Urology; Visit Provider Urology
DX: N39.0 Urinary tract infection, site not specified (principal)
CPT/HCPCS: 87086

== ENCOUNTER 2022-08-28 09:55 | Emergency (ER) | payer MEDICARE, OTHER, SELFPAY ==
[2022-07-06 23:06] VITALS: BMI 28.5
[2022-08-28] VITALS (20 sets, daily range): BP systolic 106–142; BP diastolic 65–91; PULSE 64–88; RESP 14–34; TEMP 36.3; O2SAT 93–96; BMI 29.5
--- NOTE | 2022-08-28 10:29 | ED.GENADULT ---
HPI - General Adult General Chief complaint: Weakness Stated complaint: low BP t-1 Time Seen by Provider: 08/28/22 10:08 Source: patient and family Mode of arrival: Ambulatory History of Present Illness HPI narrative: Patient is an 86-year-old male. The end of last week underwent a percutaneous nephrolithotomy. At the [facility]. This was secondary to multiple kidney stones on the left and frequent urinary tract infections. Patient states that generally he does feel well. He is taking all his medications as directed to include Bactrim. He is also on warfarin. He restarted this warfarin. He is being checked on by family members. According to a family member at bedside he was sitting at the breakfast table this morning and just in look very well. They took his blood pressure and they systolic blood pressures in the 90s. They stood him up and his systolic blood pressures in the 70s. They rechecked the several times and it continued to be the same. At the time the patient denied any chest pain, shortness of breath, abdominal pain. He is having some blood in his urine but he was told that this is going to be normal for him. He is urinating without problems. Feels like he is emptying his bladder. No fevers. Currently the patient states he feels much better than what he did this morning. Related Data Home Medications Medication Instructions Recorded Confirmed allopurinol 100 mg tablet 100 mg PO BID 04/04/20 07/10/22 ipratropium bromide 0.02 % 2.5 ml inhalation Q6H PRN 04/04/20 07/10/22 solution for inhalation warfarin 2.5 mg tablet 2.5 mg PO DAILY 04/04/20 07/10/22 atorvastatin 20 mg tablet 20 mg PO BEDTIME 07/06/22 07/10/22 cholecalciferol (vitamin D3) 50 50 mcg PO DAILY 07/06/22 07/10/22 mcg (2,000 unit) tablet metoprolol succinate 25 mg 12.5 mg PO DAILY 07/06/22 07/10/22 tablet,extended release 24 hr timolol 0.25 % eye drops 1 drp ophthalmic (eye) BID 07/10/22 07/10/22 Previous Rx's Medication Instructions Recorded cephalexin 500 mg capsule 500 mg PO BEDTIME #60 caps 07/22/22 Allergies Allergy/AdvReac Type Severity Reaction Status Date / Time latex Allergy Intermediate Rash Verified 08/28/22 10:09 Iodinated Contrast Media Allergy Unknown Verified 08/28/22 10:09 Review of Systems Review of Systems ROS Unobtainable: All systems reviewed & are unremarkable except as noted in HPI and below Patient History Medical History History of malignant neoplasm of prostate History of nephrolithiasis Left renal stone Microscopic hematuria Radiation cystitis Staghorn calculus URI (upper respiratory infection) Social History household members: spouse Smoking Status: Never smoker Smoking Status: Never smoker alcohol intake frequency: holidays/special occasions only Alcohol type: beer Substance Use Type: does not use Exam Initial Vital Signs Initial Vital Signs: Vital Signs Pulse Rate 88 08/28/22 10:01 Blood Pressure 142/82 H 08/28/22 10:01 Pulse Oximetry 95 08/28/22 10:01 Const General: cooperative, comfortable and No ill appearing HENMT Head: normal to inspection and normocephalic Resp Effort & Inspection: normal respiratory effort Auscultation: clear to auscultation bilaterally Cardio Rate: regular rate Rhythm: regular rhythm GI Inspection: normal to inspection Palpation: soft and No tender Skin Other: There is a clean bandage on his left flank or the percutaneous site was made. There is no surrounding erythema. Neuro General: patient alert, patient awake, patient oriented x3 and moves all extremities Extrem General: normal to inspection and capillary refill normal Course Orders Ordered: ED Orders 08/28/22 10:38 Blood Culture Stat Complete Blood Count AUTO DIFF Stat Comprehensive Metabolic Panel Stat Lactate (Lactic Acid) Stat Lipase Stat Procalcitonin Stat Prothrombin Time INR Stat 08/28/22 12:33 Urinalysis and Microscopic Stat Urine Culture Stat Discontinued Medications Sodium Chloride (Normal Saline 0.9%) 1,000 mls @ 500 mls/hr IV BOLUS ONE Stop: 08/28/22 12:07 Last Infusion: 08/28/22 12:53 Dose: 0 mls/hr Documented By: Admin: 08/28/22 10:47 Dose: 500 mls/hr Documented By: NR Vital Signs Vital signs: Vital Signs - 8 hr 08/28/22 10:04 08/28/22 10:01 08/28/22 10:01 Temperature 97.4 F L Pulse Rate 70 88 Respiratory Rate 14 Blood Pressure 142/82 H 142/82 H Pulse Oximetry 96 95 Oxygen Delivery Method Room Air 08/28/22 10:15 08/28/22 10:15 08/28/22 10:30 Temperature Pulse Rate 78 Respiratory Rate Blood Pressure 138/80 124/78 Pulse Oximetry 96 Oxygen Delivery Method 08/28/22 10:30 08/28/22 10:45 08/28/22 10:45 Temperature Pulse Rate 85 82 Respiratory Rate Blood Pressure 118/78 Pulse Oximetry 95 93 Oxygen Delivery Method 08/28/22 11:00 08/28/22 11:15 08/28/22 11:15 Temperature Pulse Rate 75 70 Respiratory Rate 34 H 23 Blood Pressure 127/69 Pulse Oximetry 93 94 Oxygen Delivery Method 08/28/22 11:30 08/28/22 11:31 08/28/22 11:31 Temperature Pulse Rate 65 73 Respiratory Rate 32 H 33 H Blood Pressure 122/87 Pulse Oximetry 93 93 Oxygen Delivery Method 08/28/22 11:46 08/28/22 11:46 08/28/22 12:00 Temperature Pulse Rate 64 Respiratory Rate 24 Blood Pressure 121/77 130/74 Pulse Oximetry 94 Oxygen Delivery Method 08/28/22 12:00 08/28/22 12:15 08/28/22 12:15 Temperature Pulse Rate 69 75 Respiratory Rate 24 24 Blood Pressure 135/91 H Pulse Oximetry 95 95 Oxygen Delivery Method 08/28/22 12:30 08/28/22 12:30 08/28/22 12:45 Temperature Pulse Rate 73 Respiratory Rate 24 Blood Pressure 137/90 134/89 Pulse Oximetry 95 Oxygen Delivery Method 08/28/22 12:45 08/28/22 13:00 08/28/22 13:00 Temperature Pulse Rate 77 70 Respiratory Rate 21 16 Blood Pressure 126/77 Pulse Oximetry 94 95 Oxygen Delivery Method 08/28/22 13:15 08/28/22 13:15 08/28/22 13:30 Temperature Pulse Rate 80 Respiratory Rate 21 Blood Pressure 124/80 117/65 Pulse Oximetry 94 Oxygen Delivery Method 08/28/22 13:30 08/28/22 13:34 08/28/22 13:34 Temperature Pulse Rate 77 68 Respiratory Rate 16 19 Blood Pressure 115/83 Pulse Oximetry 93 94 Oxygen Delivery Method 08/28/22 13:35 08/28/22 13:35 08/28/22 13:36 Temperature Pulse Rate 85 Respiratory Rate 25 H Blood Pressure 106/78 119/71 Pulse Oximetry 94 Oxygen Delivery Method 08/28/22 13:36 Temperature Pulse Rate 75 Respiratory Rate 20 Blood Pressure Pulse Oximetry 93 Oxygen Delivery Method Medical Decision Making Lab Data Lab results reviewed: Yes I reviewed the patient's lab results. Result diagrams: 08/28/22 10:38 08/28/22 10:38 Labs: Lab Results 08/28/22 08/28/22 08/28/22 Range/Units 10:38 10:38 10:38 WBC 6.7 (4.5-11.0) X10^3/uL RBC 4.31 L (4.5-5.9) X10^6/uL Hgb 13.8 (13.5-17.5) g/dL Hct 40.1 L (41-53) % MCV 93.0 (80-100) fL MCH 32.1 (26-34) PG MCHC 34.5 (30-36) % RDW 14.5 (11.6-14.8) % Plt Count 200 (150-400) X10^3/uL Neut % (Auto) 71.6 (50-75) % Lymph % (Auto) 14.4 L (25-40) % [place] % (Auto) 11.5 (3-14) % Eos % (Auto) 1.9 L (2-4) % Baso % (Auto) 0.6 (0-2) % Neut # (Auto) 4800 (5914-6844) /uL Lymph # (Auto) 1000 L (7008-1154) /uL [place] # (Auto) 800 (0-900) /uL Eos # (Auto) 100 (0-450) /uL Baso # (Auto) 0 (0-100) /uL PT 15.2 H (10.1-12.7) SECONDS INR 1.3 (0.9-1.3) Sodium 138 (137-145) mmol/L Potassium 4.0 (3.4-5.1) mmol/L Chloride 107 (98-107) mmol/L Carbon Dioxide 22 (22-32) mmol/L BUN 45 H (9-20) mg/dL Creatinine 2.49 H (0.66-1.25) mg/dL Estimated GFR 25 L (>60) mL/min BUN/Creatinine Ratio 18.1 (6-22) Glucose 122 H (80-110) mg/dL Lactate (0.7-2.1) mmol/L Calcium 9.0 (8.4-10.2) mg/dL Total Bilirubin 0.9 (0.2-1.3) mg/dL AST 27 (17-59) IU/L ALT 24 (<50) IU/L Alkaline Phosphatase 84 (38-126) U/L Total Protein 6.4 (6.3-8.2) g/dL Albumin 3.4 L (3.5-5.0) g/dL Globulin 3.0 (1.7-4.1) g/dL Albumin/Globulin Ratio 1.1 (1.0-2.8) Lipase 74 (23-300) U/L Procalcitonin 0.14 (<0.5) ng/mL 08/28/22 Range/Units 10:38 WBC (4.5-11.0) X10^3/uL RBC (4.5-5.9) X10^6/uL Hgb (13.5-17.5) g/dL Hct (41-53) % MCV (80-100) fL MCH (26-34) PG MCHC (30-36) % RDW (11.6-14.8) % Plt Count (150-400) X10^3/uL Neut % (Auto) (50-75) % Lymph % (Auto) (25-40) % [place] % (Auto) (3-14) % Eos % (Auto) (2-4) % Baso % (Auto) (0-2) % Neut # (Auto) (9809-2726) /uL Lymph # (Auto) (0504-7753) /uL [place] # (Auto) (0-900) /uL Eos # (Auto) (0-450) /uL Baso # (Auto) (0-100) /uL PT (10.1-12.7) SECONDS INR (0.9-1.3) Sodium (137-145) mmol/L Potassium (3.4-5.1) mmol/L Chloride (98-107) mmol/L Carbon Dioxide (22-32) mmol/L BUN (9-20) mg/dL Creatinine (0.66-1.25) mg/dL Estimated GFR (>60) mL/min BUN/Creatinine Ratio (6-22) Glucose (80-110) mg/dL Lactate 1.1 (0.7-2.1) mmol/L Calcium (8.4-10.2) mg/dL Total Bilirubin (0.2-1.3) mg/dL AST (17-59) IU/L ALT (<50) IU/L Alkaline Phosphatase (38-126) U/L Total Protein (6.3-8.2) g/dL Albumin (3.5-5.0) g/dL Globulin (1.7-4.1) g/dL Albumin/Globulin Ratio (1.0-2.8) Lipase (23-300) U/L Procalcitonin (<0.5) ng/mL MDM Narrative Medical decision making narrative: Patient's blood pressure here is unremarkable. His labs are unremarkable except for an elevation in his creatinine which is not surprising giving his most recent urologic/kidney procedure. He is currently on Bactrim that was prescribed by his urologist. Patient is not septic. He is not retaining urine. Has a soft abdominal exam. Tolerating oral intake. Not orthostatic here in the ER. Ambulated around the department without problems. Discharged home with instructions to continue all of the postoperative instructions given him by the urologist. He will continue all of his medications. He was given return precautions. He expressed understanding and agreement. Discharge Plan Departure Patient Disposition: Home Clinical Impression: Hypotension Instructions: DI for Hypotension Activity Restrictions/Additional Instructions: Continue to take all of your medications as directed and follow all of the postoperative instructions given the by the surgeon. Also keep all of your scheduled medical appointments. Return to the emergency department for any new or worsening symptoms. Prescriptions: No Action warfarin 2.5 mg tablet 2.5 mg PO DAILY allopurinol 100 mg tablet 100 mg PO BID ipratropium bromide 0.02 % solution 2.5 ml INHALATION Q6H PRN timolol 0.25 % drops 1 drp ophthalmic (eye) BID cephalexin 500 mg capsule 500 mg PO BEDTIME Qty: 60 1RF atorvastatin 20 mg Tablet 20 mg PO BEDTIME metoprolol succinate 25 mg Tablet Extended Release 24 Hr 12.5 mg PO DAILY cholecalciferol (vitamin D3) 50 mcg (2,000 unit) Tablet 50 mcg PO DAILY Referrals: Charlie Eid MD [Primary Care Provider] -
[2022-08-28] MEDS: SODIUM CHLORIDE 0.9% 1,000 ML 500 ML IV (10:47)
[2022-08-28 10:50] LABS: Add Manual Diff / Slide Review NO; Basophils Absolute Auto 0 /uL (0-100); Basophils Percent Auto 0.6 % (0-2); Eosinophils Absolute Auto 100 /uL (0-450); Eosinophils Percent Auto 1.9 % (2-4); Hematocrit 40.1 % (41-53); Hemoglobin 13.8 g/dL (13.5-17.5); Lymphocytes Absolute Auto 1000 /uL (1100-4500); Lymphocytes Percent Auto 14.4 % (25-40); Mean Corpuscular HGB Conc 34.5 % (30-36); Mean Corpuscular Hemoglobin 32.1 PG (26-34); Monocytes Absolute Auto 800 /uL (0-900); Monocytes Percent Auto 11.5 % (3-14); Neutrophils Absolute Auto 4800 /uL (1500-7000); Neutrophils Percent Auto 71.6 % (50-75); Platelet Count 200 X10^3/uL (150-400); Red Blood Cell Count 4.31 X10^6/uL (4.5-5.9); Red Cell Distribution Width 14.5 % (11.6-14.8); White Blood Cell Count 6.7 X10^3/uL (4.5-11.0)
[2022-08-28 11:00] LABS: INR 1.3 (0.9-1.3); Prothrombin Time 15.2 SECONDS (10.1-12.7)
[2022-08-28 11:08] LABS: Alanine Aminotransferase 24 IU/L (<50); Albumin 3.4 g/dL (3.5-5.0); Albumin Globulin Ratio 1.1 (1.0-2.8); Alkaline Phosphatase 84 U/L (38-126); Aspartate Aminotransferase 27 IU/L (17-59); BUN Creatinine Ratio 18.1 (6-22); Bilirubin Total 0.9 mg/dL (0.2-1.3); Blood Urea Nitrogen 45 mg/dL (9-20); Carbon Dioxide 22 mmol/L (22-32); Chloride 107 mmol/L (98-107); Estimated Glomerular Filt Rate 25 mL/min (>60); Glucose 122 mg/dL (80-110); HEMOLYSIS < 15 (0-50); Lipase 74 U/L (23-300); Sodium 138 mmol/L (137-145); Total Protein 6.4 g/dL (6.3-8.2)
[2022-08-28 11:19] LABS: Lactate (Lactic Acid) 1.1 mmol/L (0.7-2.1)
[2022-08-28 11:25] LABS: Procalcitonin 0.14 ng/mL (<0.5)
--- NOTE | 2022-08-28 13:43 | PC.NURSE ---
othrostatic VS done. then patient ambulated around ER. denies SOB, unusual pain, lightheadedness, dizzy. gait steady. pt ready to go home
[2022-08-28 13:47] LABS: Bilirubin Urine UA NEGATIVE (NEGATIVE); Glucose Urine UA 1+ g/dL (Negative); Ketones Urine UA NEGATIVE (NEGATIVE); Leukocyte Esterase Urine UA 1+ (NEGATIVE); Nitrite Urine UA POSITIVE (Negative); Occult Blood Urine UA 3+ (Negative); Protein Urine UA 3+ (Negative)
[2022-08-28 14:03] LABS: Appearance Urine UA Slightly Cloudy; Color Urine UA AMBER
[2022-08-28 14:06] LABS: Amorphous Sediment Urine 1+; Bacteria Urine Moderate (10-30); RBC Urine >100/HPF (0-5/HPF); Squamous Epithelial Cell Urine 1-5 /HPF (0-5/HPF); WBC Urine 5-10/HPF (0-5/HPF)
== END 2022-08-28 14:02 | disposition home or self-care (01) ==
PROVIDERS: Emergency Provider Emergency Medicine; PCP Internal Medicine
DX: I95.9 Hypotension, unspecified (principal); Z79.01 Long term (current) use of anticoagulants
CPT/HCPCS: 36415; 51798; 80053; 81001; 83605; 83690; 84145; 85025; 85610; 87040; 87086; 96360; 96361; 99284

== ENCOUNTER → 2022-09-04 09:32 | Outpatient (CLI) | payer MEDICARE, OTHER, SELFPAY ==
[2022-07-06 23:06] VITALS: BMI 28.5
--- NOTE | 2022-09-04 09:35 | DI.RAD.S_ITS ---
PROCEDURE: XR KUB INDICATIONS: kidney stone TECHNIQUE: One view of the abdomen acquired. COMPARISON: [facility], CR, XR KUB, 10/26/2019, 8:01. [facility], CT, CT ABDOMEN PELVIS WO CON, 07/06/2022, 14:16. [facility], CR, XR KUB, 07/10/2022, 11:07. FINDINGS: Surgical changes and devices: Interval placement of left ureteral stent. Multiple pelvic surgical clips and left hip arthroplasty which is incompletely visualized. Bowel: Bowel gas pattern is normal. Soft tissues: No suspicious abdominal calcifications. Visualized solid organ contours appear normal in size. 3 mm calcification projected over the mid inferior pole of the left renal fossa. Bones: No suspicious bony lesions. IMPRESSION: 1. Interval placement of left ureteral stent. 2. A 3 mm calcification projected over inferior pole of the left renal fossa. Dictated by: John EDMONDS Interpreted: Reinaldo Peña MD on 09/04/2022 at 10:13 Approved by: Reinaldo Peña M.D. on 09/04/2022 at 17:42
== END ==
PROVIDERS: PCP Internal Medicine; Referring Provider Specialist; Visit Provider Specialist
DX: N30.00 Acute cystitis without hematuria (principal); N20.0 Calculus of kidney; Z96.0 Presence of urogenital implants
CPT/HCPCS: 74018

== ENCOUNTER → 2022-12-03 10:11 | Outpatient (CLI) | payer MEDICARE, OTHER, SELFPAY ==
[2022-07-06 23:06] VITALS: BMI 28.5
--- NOTE | 2022-12-03 10:12 | DI.RAD.S_ITS ---
PROCEDURE: XR KUB INDICATIONS: Kidney stone TECHNIQUE: One view of the abdomen acquired. COMPARISON: [facility], CR, XR KUB, 07/10/2022, 11:07. [facility], CR, XR KUB, 09/04/2022, 9:46. FINDINGS: Surgical changes and devices: Prior left total hip arthroplasty is again seen. Surgical clips are also noted in bilateral lower pelvis. Bowel: Mild fecal stasis in the colon is seen. No gross pneumoperitoneum. No evidence of bowel obstruction. Soft tissues: There is interval significant decrease in amount of left-sided renal calcifications. Tiny 3-4 mm calcification is seen projecting in the region of mid to lower pole left kidney. No right-sided renal calcification is seen. Visualized solid organ contours appear normal in size. Bones: No suspicious bony lesions. IMPRESSION: Interval decrease in the amount of left-sided renal calcifications. Tiny 4 mm left renal calculus as above. Dictated by: Andrey Amin M.D. on 12/03/2022 at 11:03 Approved by: Andrey Amin M.D. on 12/03/2022 at 11:04
== END ==
PROVIDERS: PCP Internal Medicine; Referring Provider Specialist; Visit Provider Specialist
DX: N20.0 Calculus of kidney (principal)
CPT/HCPCS: 74018

== ENCOUNTER 2023-03-26 16:47 | Emergency (ER) | payer MEDICARE, OTHER, SELFPAY ==
[2022-07-06 23:06] VITALS: BMI 28.5
[2023-03-26] VITALS (9 sets, daily range): BP systolic 115–151; BP diastolic 75–87; PULSE 68–102; RESP 15–28; TEMP 36.5; O2SAT 95–96; BMI 29.0
--- NOTE | 2023-03-26 17:22 | DI.RAD.S_ITS ---
PROCEDURE: XR CHEST 1V INDICATIONS: chest pain TECHNIQUE: One view of the chest was acquired. COMPARISON: [facility], CR, XR CHEST 1V, 07/06/2022, 10:58. FINDINGS: Surgical changes and devices: None. Lungs and pleura: Lungs are clear. No pleural effusions or pneumothorax. Mediastinum: Mediastinal contours appear normal. Heart size is normal. Bones and chest wall: No suspicious bony lesions. Overlying soft tissues appear unremarkable. IMPRESSION: No acute process. Dictated by: Jose Ramon Bennett M.D. on 03/26/2023 at 17:47 Approved by: Jose Ramon Bennett M.D. on 03/26/2023 at 17:48
[2023-03-26 18:07] LABS: Add Manual Diff / Slide Review NO; Basophils Absolute Auto 0 /uL (0-100); Basophils Percent Auto 0.7 % (0-2); Eosinophils Absolute Auto 200 /uL (0-450); Eosinophils Percent Auto 2.3 % (2-4); Hematocrit 44.6 % (41-53); Hemoglobin 15.4 g/dL (13.5-17.5); Lymphocytes Absolute Auto 1600 /uL (1100-4500); Lymphocytes Percent Auto 24.1 % (25-40); Mean Corpuscular HGB Conc 34.5 % (30-36); Mean Corpuscular Hemoglobin 32.7 PG (26-34); Mean Corpuscular Volume 94.9 fL (80-100); Monocytes Absolute Auto 700 /uL (0-900); Monocytes Percent Auto 10.3 % (3-14); Neutrophils Absolute Auto 4100 /uL (1500-7000); Neutrophils Percent Auto 62.6 % (50-75); Platelet Count 200 X10^3/uL (150-400); Red Cell Distribution Width 13.8 % (11.6-14.8); White Blood Cell Count 6.5 X10^3/uL (4.5-11.0)
[2023-03-26 18:12] LABS: INR 3.5 (0.9-1.3); Prothrombin Time 40.9 SECONDS (10.1-12.7)
[2023-03-26 18:15] LABS: PTT Partial Thromboplastin Tim 49 SECONDS (26-36)
[2023-03-26 18:17] LABS: Alanine Aminotransferase 31 IU/L (<50); Albumin 3.8 g/dL (3.5-5.0); Albumin Globulin Ratio 1.5 (1.0-2.8); Alkaline Phosphatase 102 U/L (38-126); Aspartate Aminotransferase 30 IU/L (17-59); BUN Creatinine Ratio 23.4 (6-22); Bilirubin Total 1.1 mg/dL (0.2-1.3); Blood Urea Nitrogen 18 mg/dL (9-20); Calcium 9.1 mg/dL (8.4-10.2); Carbon Dioxide 25 mmol/L (22-32); Chloride 107 mmol/L (98-107); Creatine Kinase 68 U/L (55-170); Estimated Glomerular Filt Rate > 60 mL/min (>60); Globulin 2.6 g/dL (1.7-4.1); Glucose 178 mg/dL (80-110); HEMOLYSIS < 15 (0-50); Lipase 85 U/L (23-300); Magnesium 1.8 mg/dL (1.6-2.3); Potassium 3.9 mmol/L (3.4-5.1); Sodium 138 mmol/L (137-145); Total Protein 6.4 g/dL (6.3-8.2)
[2023-03-26 18:25] LABS: NT-proBNP (BNP-Adult 18+) 87 pg/mL (<450)
[2023-03-26 18:29] LABS: Troponin I < 0.012 ng/mL (0.01-0.034)
--- NOTE | 2023-03-26 18:29 | ED_ITS ---
HPI - General Adult General Chief complaint: Weakness Stated complaint: 2 weeks weak/dizzy/sob, worsening Time Seen by Provider: 03/26/23 17:57 Source: patient Mode of arrival: Ambulatory Limitations: no limitations History of Present Illness HPI narrative: Patient is an 87-year-old male. Has a history of paroxysmal AFib. His on anticoagulation. Was told to come into the emergency department by the nurse that his Cardiology office for evaluation of greater than 2 weeks of worsening shortness of breath and dizziness. He states that the symptoms occur when he is going from either lying to sitting or sitting to standing. He states that it improves after he is in these particular positions for short period of time. He is able to then walk without problems. He is not having any chest pain. When he gets back from walking and sits down he does have some shortness of breath but then this also improved. No coughing. No fevers. No palpitations. He has not fallen. The symptoms have just been worsening over the past several weeks. He contacted his nursing professor's office for follow-up and he was advised to come to the emergency department for further evaluation. Related Data Home Medications Medication Instructions Recorded Confirmed allopurinol 100 mg tablet 100 mg PO BID 04/04/20 03/05/23 warfarin 2.5 mg tablet 2.5 mg PO DAILY 04/04/20 03/05/23 cholecalciferol (vitamin D3) 50 50 mcg PO DAILY 07/06/22 03/05/23 mcg (2,000 unit) tablet metoprolol succinate 25 mg 12.5 mg PO DAILY 07/06/22 03/05/23 tablet,extended release 24 hr timolol 0.25 % eye drops 1 drp ophthalmic (eye) BID 07/10/22 03/05/23 cyanocobalamin (vitamin B-12) 50 50 mcg PO DAILY 03/05/23 03/05/23 mcg tablet (Vitamin B-12) Allergies Allergy/AdvReac Type Severity Reaction Status Date / Time latex Allergy Intermediate Rash Verified 03/05/23 09:56 Iodinated Contrast Media Allergy Unknown Verified 03/05/23 09:56 Review of Systems Review of Systems ROS Unobtainable: All systems reviewed & are unremarkable except as noted in HPI and below Patient History Medical History History of malignant neoplasm of prostate History of nephrolithiasis History of UTI Left renal stone Microscopic hematuria Radiation cystitis Staghorn calculus URI (upper respiratory infection) Social History household members: spouse Smoking Status: Never smoker Smoking Status: Never smoker alcohol intake frequency: holidays/special occasions only Alcohol type: beer Substance Use Type: does not use Exam Initial Vital Signs Initial Vital Signs: Vital Signs Temperature 97.7 F 03/26/23 17:15 Pulse Rate 86 03/26/23 17:15 Respiratory Rate 20 03/26/23 17:15 Blood Pressure 125/78 03/26/23 17:15 Pulse Oximetry 95 03/26/23 17:15 Oxygen Delivery Method Room Air 03/26/23 17:15 Const General: cooperative, comfortable and No ill appearing HENMT Head: normal to inspection and normocephalic Resp Effort & Inspection: normal respiratory effort Auscultation: clear to auscultation bilaterally Cardio Rate: regular rate Rhythm: regular rhythm GI Inspection: normal to inspection and non-distended Skin General: no rashes or lesions noted Neuro General: patient alert, patient awake, patient oriented x3 and moves all extremities Extrem General: No edema Course Orders Ordered: ED Orders 03/26/23 17:22 XR chest 1V Stat EKG-12 Lead Stat 03/26/23 17:55 BNP [NT-proBNP (BNP-Adult 18+)] Stat Complete Blood Count AUTO DIFF Stat Comprehensive Metabolic Panel Stat Lipase Stat Magnesium Stat PTT Partial Thromboplastin Darrel Stat Prothrombin Time INR Stat Troponin & CK Cardiac Panel Stat Discontinued Medications Aspirin (Aspirin 81 Mg Chew Tab) 324 mg PO NOW ONE Stop: 03/26/23 17:23 Last Admin: 03/26/23 18:17 Dose: Not Given Documented By: SPF Vital Signs Vital signs: Vital Signs - 8 hr 03/26/23 18:45 03/26/23 18:45 03/26/23 18:00 Pulse Rate 102 H Pulse Rate [Orthostatic Lying] 88 Pulse Rate [Orthostatic Sitting] 82 Pulse Rate [Orthostatic Standing] 84 Respiratory Rate Blood Pressure 115/80 Blood Pressure [Orthostatic Lying] 137/82 Blood Pressure [Orthostatic Sitting] 121/75 Blood Pressure [Orthostatic Standing] 136/87 Pulse Oximetry 96 Oxygen Delivery Method 03/26/23 18:00 03/26/23 18:30 03/26/23 18:30 Pulse Rate 82 79 Pulse Rate [Orthostatic Lying] Pulse Rate [Orthostatic Sitting] Pulse Rate [Orthostatic Standing] Respiratory Rate 15 20 Blood Pressure 151/85 H Blood Pressure [Orthostatic Lying] Blood Pressure [Orthostatic Sitting] Blood Pressure [Orthostatic Standing] Pulse Oximetry 96 96 Oxygen Delivery Method Room Air 03/26/23 18:35 03/26/23 18:35 03/26/23 18:38 Pulse Rate 88 81 Pulse Rate [Orthostatic Lying] Pulse Rate [Orthostatic Sitting] Pulse Rate [Orthostatic Standing] Respiratory Rate 17 Blood Pressure 137/82 Blood Pressure [Orthostatic Lying] Blood Pressure [Orthostatic Sitting] Blood Pressure [Orthostatic Standing] Pulse Oximetry 96 Oxygen Delivery Method 03/26/23 18:38 03/26/23 18:40 03/26/23 18:40 Pulse Rate 84 Pulse Rate [Orthostatic Lying] Pulse Rate [Orthostatic Sitting] Pulse Rate [Orthostatic Standing] Respiratory Rate 16 Blood Pressure 121/75 136/87 Blood Pressure [Orthostatic Lying] Blood Pressure [Orthostatic Sitting] Blood Pressure [Orthostatic Standing] Pulse Oximetry Oxygen Delivery Method 03/26/23 19:00 Pulse Rate 86 Pulse Rate [Orthostatic Lying] Pulse Rate [Orthostatic Sitting] Pulse Rate [Orthostatic Standing] Respiratory Rate 28 H Blood Pressure Blood Pressure [Orthostatic Lying] Blood Pressure [Orthostatic Sitting] Blood Pressure [Orthostatic Standing] Pulse Oximetry 96 Oxygen Delivery Method Room Air Medical Decision Making Lab Data Lab results reviewed: Yes I reviewed the patient's lab results. 03/26/23 17:55 03/26/23 17:55 Labs: Lab Results 03/26/23 03/26/23 03/26/23 Range/Units 17:55 17:55 17:55 WBC 6.5 (4.5-11.0) X10^3/uL RBC 4.70 (4.5-5.9) X10^6/uL Hgb 15.4 (13.5-17.5) g/dL Hct 44.6 (41-53) % MCV 94.9 (80-100) fL MCH 32.7 (26-34) PG MCHC 34.5 (30-36) % RDW 13.8 (11.6-14.8) % Plt Count 200 (150-400) X10^3/uL Neut % (Auto) 62.6 (50-75) % Lymph % (Auto) 24.1 L (25-40) % [place] % (Auto) 10.3 (3-14) % Eos % (Auto) 2.3 (2-4) % Baso % (Auto) 0.7 (0-2) % Neut # (Auto) 4100 (9121-6684) /uL Lymph # (Auto) 1600 (2690-4719) /uL [place] # (Auto) 700 (0-900) /uL Eos # (Auto) 200 (0-450) /uL Baso # (Auto) 0 (0-100) /uL PT 40.9 H (10.1-12.7) SECONDS INR 3.5 H (0.9-1.3) APTT 49 H (26-36) SECONDS Sodium 138 (137-145) mmol/L Potassium 3.9 (3.4-5.1) mmol/L Chloride 107 (98-107) mmol/L Carbon Dioxide 25 (22-32) mmol/L BUN 18 (9-20) mg/dL Creatinine 0.77 (0.66-1.25) mg/dL Estimated GFR > 60 (>60) mL/min BUN/Creatinine Ratio 23.4 H (6-22) Glucose 178 H (80-110) mg/dL Calcium 9.1 (8.4-10.2) mg/dL Magnesium 1.8 (1.6-2.3) mg/dL Total Bilirubin 1.1 (0.2-1.3) mg/dL AST 30 (17-59) IU/L ALT 31 (<50) IU/L Alkaline Phosphatase 102 (38-126) U/L Total Creatine Kinase 68 (55-170) U/L CK-MB (CK-2) TNP CK-MB (CK-2) Rel Index TNP Troponin I < 0.012 (0.01-0.034) ng/mL NT-Pro-B Natriuret Pep (<450) pg/mL Total Protein 6.4 (6.3-8.2) g/dL Albumin 3.8 (3.5-5.0) g/dL Globulin 2.6 (1.7-4.1) g/dL Albumin/Globulin Ratio 1.5 (1.0-2.8) Lipase 85 (23-300) U/L 03/26/23 Range/Units 17:55 WBC (4.5-11.0) X10^3/uL RBC (4.5-5.9) X10^6/uL Hgb (13.5-17.5) g/dL Hct (41-53) % MCV (80-100) fL MCH (26-34) PG MCHC (30-36) % RDW (11.6-14.8) % Plt Count (150-400) X10^3/uL Neut % (Auto) (50-75) % Lymph % (Auto) (25-40) % [place] % (Auto) (3-14) % Eos % (Auto) (2-4) % Baso % (Auto) (0-2) % Neut # (Auto) (6392-0062) /uL Lymph # (Auto) (8506-5611) /uL [place] # (Auto) (0-900) /uL Eos # (Auto) (0-450) /uL Baso # (Auto) (0-100) /uL PT (10.1-12.7) SECONDS INR (0.9-1.3) APTT (26-36) SECONDS Sodium (137-145) mmol/L Potassium (3.4-5.1) mmol/L Chloride (98-107) mmol/L Carbon Dioxide (22-32) mmol/L BUN (9-20) mg/dL Creatinine (0.66-1.25) mg/dL Estimated GFR (>60) mL/min BUN/Creatinine Ratio (6-22) Glucose (80-110) mg/dL Calcium (8.4-10.2) mg/dL Magnesium (1.6-2.3) mg/dL Total Bilirubin (0.2-1.3) mg/dL AST (17-59) IU/L ALT (<50) IU/L Alkaline Phosphatase (38-126) U/L Total Creatine Kinase (55-170) U/L CK-MB (CK-2) CK-MB (CK-2) Rel Index Troponin I (0.01-0.034) ng/mL NT-Pro-B Natriuret Pep 87 (<450) pg/mL Total Protein (6.3-8.2) g/dL Albumin (3.5-5.0) g/dL Globulin (1.7-4.1) g/dL Albumin/Globulin Ratio (1.0-2.8) Lipase (23-300) U/L Urine Dip Bedside Urine Glucose Negative Bedside Urine Bilirubin - Negative Bedside Urine Ketone - Negative Urine Specific [place] 1.015 Bedside Urine Occult Blood - Negative Bedside Urine pH 6.0 Bedside Urine Protein - Negative Bedside Urine Urobilinogen - Negative Bedside Urine Nitrite - Negative Bedside Urine Leukocytes - Negative Esterase Point of care testing: Urine Dip Bedside Urine Glucose Negative Bedside Urine Bilirubin - Negative Bedside Urine Ketone - Negative Urine Specific [place] 1.015 Bedside Urine Occult Blood - Negative Bedside Urine pH 6.0 Bedside Urine Protein - Negative Bedside Urine Urobilinogen - Negative Bedside Urine Nitrite - Negative Bedside Urine Leukocytes - Negative Esterase Imaging Data Chest x-ray: Radiologist's Impression: PROCEDURE:? XR CHEST 1V ? INDICATIONS:? chest pain ? TECHNIQUE:? One view of the chest was acquired.? ? COMPARISON:? [facility], , XR CHEST 1V, 07/06/2022, 10:58. ? FINDINGS:? ? Surgical changes and devices:? None.? ? Lungs and pleura:? Lungs are clear.? No pleural effusions or pneumothorax.? ? Mediastinum:? Mediastinal contours appear normal.? Heart size is normal.? ? Bones and chest wall:? No suspicious bony lesions.? Overlying soft tissues appear unremarkable.? ? IMPRESSION:? No acute process. ECG Data Attestation: I personally reviewed and interpreted this ECG as follows: Interpretation: Sinus rhythm Ventricular rate is 76 Sinus arrhythmia First-degree AV block TX interval 220 milliseconds Normal QRS Normal QTC No ST T wave changes MDM Narrative Medical decision making narrative: Patient is in sinus rhythm. He has negative orthostatic blood pressures. He was able to ambulate here in the emergency department. His symptoms are not consistent with vertigo. I have low suspicion for CVA. His blood counts and electrolytes are unremarkable. He is not fluid overloaded. Not clinically in heart failure. We did discuss the lack of a definitive etiology of the patient's symptoms. I do feel that he needs follow-up with Cardiology. He was given return precautions. He expressed understanding and agreement. Discharge Plan Departure Patient Disposition: Home Clinical Impression: Intermittent lightheadedness Instructions: DI for Dizziness-Nonvertigo Activity Restrictions/Additional Instructions: Your workup here in the emergency department is very reassuring. Unfortunately I do not have a specific cause of your symptoms today. I do think that you need a follow-up with your primary doctor and also Cardiology. Continue to take all of your medications as directed. Return to the emergency department for new or worsening symptoms. Prescriptions: No Action warfarin 2.5 mg tablet 2.5 mg PO DAILY allopurinol 100 mg tablet 100 mg PO BID timolol 0.25 % drops 1 drp ophthalmic (eye) BID metoprolol succinate 25 mg Tablet Extended Release 24 Hr 12.5 mg PO DAILY cholecalciferol (vitamin D3) 50 mcg (2,000 unit) Tablet 50 mcg PO DAILY Vitamin B-12 50 mcg tablet 50 mcg PO DAILY Referrals: Raquel Alarcon MD [Primary Care Provider] - Stand Alone Forms: Patient Portal/API
== END 2023-03-26 19:27 | disposition home or self-care (01) ==
PROVIDERS: Emergency Medicine; Emergency Provider Emergency Medicine; PCP Internal Medicine
DX: R42 Dizziness and giddiness (principal); R07.9 Chest pain, unspecified; Z79.01 Long term (current) use of anticoagulants; Z79.899 Other long term (current) drug therapy
CPT/HCPCS: 36415; 71045; 80053; 81003; 82550; 83690; 83735; 83880; 84484; 85025; 85610; 85730; 93005; 99284

== ENCOUNTER → 2023-09-02 10:10 | Outpatient (CLI) | payer MEDICARE, OTHER, SELFPAY ==
[2022-07-06 23:06] VITALS: BMI 28.5
--- NOTE | 2023-09-02 10:13 | DI.RAD.S_ITS ---
PROCEDURE: XR KUB INDICATIONS: kidney stones TECHNIQUE: One view of the abdomen acquired. COMPARISON: [facility], CR, XR KUB, 12/03/2022, 10:19. [facility], CR, XR KUB, 09/04/2022, 9:46. FINDINGS: Surgical changes and devices: Surgical clips project over the pelvis and left hip arthroplasty. Bowel: Bowel gas pattern is normal. Soft tissues: A couple of calcifications project over the lower pole of the left kidney measuring 5 mm and 4 mm. Bones: No suspicious bony lesions. IMPRESSION: A couple of nonobstructing nephrolithiasis projecting over the inferior left kidney. Dictated by: Ziggy Llanes M.D. on 09/02/2023 at 14:32 Approved by: Ziggy Llanes M.D. on 09/02/2023 at 14:33
[2023-09-02 12:19] LABS: Prostate Specific Antigen < 0.064 ng/mL (0.10-4.00)
== END ==
PROVIDERS: PCP Internal Medicine; Referring Provider Specialist; Visit Provider Specialist
DX: N20.0 Calculus of kidney (principal); Z85.46 Personal history of malignant neoplasm of prostate
CPT/HCPCS: 36415; 74018; 84153

== ENCOUNTER 2023-09-26 07:49 | Day surgery (SDC) | payer MEDICARE, OTHER, SELFPAY ==
[2022-07-06 23:06] VITALS: BMI 28.5
[2023-09-22 14:05] VITALS: BMI 29.2
[2023-09-26] VITALS (7 sets, daily range): BP systolic 108–140; BP diastolic 72–98; PULSE 79–102; RESP 12–16; TEMP 36–36.7; O2SAT 93–99; BMI 29.2
--- NOTE | 2023-09-26 06:00 | DI.RAD.S_ITS ---
PROCEDURE: XR KUB INDICATIONS: Nephrolithiasis TECHNIQUE: One view of the abdomen acquired. COMPARISON: [facility], CT, CT ABDOMEN PELVIS WO CON, 07/06/2022, 14:16. [facility], CR, XR KUB, 12/03/2022, 10:19. [facility], CR, XR KUB, 09/02/2023, 10:18. FINDINGS: Surgical changes and devices: Multiple clips in the pelvis. Left hip arthroplasty. Bowel: Scattered small bowel and colonic gas. No dilated loops of bowel identified. Soft tissues: Small 2 or 3 left kidney stones. These measure approximately 3 mm. No suspicious abdominal calcifications. Visualized solid organ contours appear normal in size. Bones: No suspicious bony lesions. IMPRESSION: Small left kidney stones appear unchanged. Dictated by: Reinaldo Peña M.D. on 09/26/2023 at 8:07 Approved by: Reianldo Peña M.D. on 09/26/2023 at 8:11
[2023-09-26] MEDS: LACTATED RINGERS 1,000 ML 21 ML IV (08:20)
[2023-09-26] MEDS: ACETAMINOPHEN IV 1,000 MG/100 ML VIAL 400 MG IV (08:25)
--- NOTE | 2023-09-26 08:30 | PM.PREOP ---
Pre-operative Note Interval Note History & Physical reviewed/Exam performed by Physician: Yes Changes to H&P: No
--- NOTE | 2023-09-26 09:03 | SUR.OPER ---
Supine on ESWL table, head on pillow, arms padded and tucked at sides, legs uncrossed.
[2023-09-26] MEDS: FUROSEMIDE 40 MG/4 ML VIAL 20 MG IV (10:03)
--- NOTE | 2023-09-26 10:03 | PM.OP.1 ---
Operative Date/Time/Diagnoses Date of procedure: 09/26/23 Time of procedure: 09:50 Pre-op diagnosis: 1. Left nephrolithiasis 2. History of calculus pyelonephritis/urosepsis Post-op diagnosis: same Procedure & Clinicians Procedure: 1. Left extracorporeal shockwave lithotripsy (maximum level 7.0 time 2650 shocks). Same procedure as scheduled: Yes Indications: 1. Left nephrolithiasis 2. History of left calculus pyelonephritis/urosepsis Surgeon: Gerald Dupree Click Yes if Unassisted: Yes Anesthesia Type: General Operative Notes Findings: The to 5 mm calculi located in the left interpolar, and left lower pole preoperative imaging. Closure Type: not applicable Specimen(s): none sent Estimated Blood Loss (mL): 0 Blood products transfused: none Procedure in detail: Patient was positioned in supine and was administered general anesthesia. The above-described calculus line in the left interpolar calyx region was then localized in the X, Y, and Z plane. Lithotripsy was then commenced at minimal power level for 200 shocks. A 2 minute pause was then conducted. Lithotripsy was then resumed on this stone and power level was gradually increased to a maximum of 7.0. 1250 shocks in total were delivered to this calculus. Next, the calculus located in a lower pole left calyx was then localized in the X, Y, and Z plane. Lithotripsy was resumed and a total of 1400 shocks were delivered to the stone. There was excellent radiographic evidence of stone comminution of both stones. Treatment was halted. Patient was then awakened, transferred to [facility], then transferred to recovery in stable condition. Complications: none Post-operative Condition: stable Disposition: PACU Plan for aftercare: Discharge home.
== END 2023-09-26 10:39 | disposition home or self-care (01) ==
PROVIDERS: PCP Internal Medicine; Referring Provider Specialist; Visit Provider Specialist
PROC: (CPT 50590; principal; 2023-09-26 09:15)
DX: N20.0 Calculus of kidney (principal)
CPT/HCPCS: 50590; 74018; J0131; J1100; J1940; J2405; J2704; J3010

== ENCOUNTER → 2023-11-01 09:39 | Outpatient (CLI) | payer MEDICARE, OTHER, SELFPAY ==
[2022-07-06 23:06] VITALS: BMI 28.5
--- NOTE | 2023-11-01 09:42 | DI.RAD.S_ITS ---
PROCEDURE: XR KUB INDICATIONS: Hx of nephrolithiasis TECHNIQUE: One view of the abdomen acquired. COMPARISON: [facility], CR, XR KUB, 09/26/2023, 7:55. [facility], CR, XR KUB, 09/02/2023, 10:18. FINDINGS: Surgical changes and devices: Status post left hip arthroplasty. Surgical clips are seen projecting over the pelvis. Bowel: Bowel gas pattern is normal. Soft tissues: Thin calcification is seen projecting over the left kidney, which appear decreased in number when compared to the radiographs from 09/26/2023. Visualized solid organ contours appear normal in size. Bones: No suspicious bony lesions. Multilevel degenerative changes. IMPRESSION: Left renal calculi appear less prominent and likely decreased in number. Approved by: Toan Davies M.D. on 11/01/2023 at 20:40
== END ==
LOC: DI 09:41
PROVIDERS: PCP Internal Medicine; Referring Provider Specialist; Visit Provider Specialist
DX: N20.0 Calculus of kidney (principal); Z87.442 Personal history of urinary calculi
CPT/HCPCS: 74018

== ENCOUNTER → 2023-11-03 10:29 | Outpatient (CLI) | payer MEDICARE, OTHER, SELFPAY ==
[2022-07-06 23:06] VITALS: BMI 28.5
[2023-11-11 12:48] LABS: Ca oxalate monohydr 100 % (.); Size 2x2 mm (.)
== END ==
PROVIDERS: PCP Internal Medicine; Visit Provider Specialist
DX: N20.0 Calculus of kidney (principal); Z87.442 Personal history of urinary calculi; Z87.440 Personal history of urinary (tract) infections; Z85.46 Personal history of malignant neoplasm of prostate
CPT/HCPCS: 81002; 82365; 99214

== ENCOUNTER → 2024-12-20 11:57 | Outpatient (CLI) | payer MEDICARE, OTHER, SELFPAY ==
[2024-09-09 09:38] VITALS: BMI 28.5
--- NOTE | 2024-12-20 12:00 | DI.RAD.S_ITS ---
PROCEDURE: XR CHEST 2V INDICATIONS: COUGH TECHNIQUE: 2 views of the chest were acquired. COMPARISON: [facility], CR, XR CHEST 1V, 03/26/2023, 17:25. FINDINGS: Surgical changes and devices: None. Lungs and pleura: There is mild left hemidiaphragmatic elevation with left basilar atelectasis noted. Lungs are otherwise clear. No pleural effusions or pneumothorax. Mediastinum: Mediastinal contours are normal. Heart size is normal. Bones and chest wall: No suspicious bony abnormalities. Soft tissues appear unremarkable. IMPRESSION: Left hemidiaphragmatic elevation and basilar atelectasis without evidence of acute cardiopulmonary process. Dictated by: Phuc Flower M.D. on 12/20/2024 at 17:11 Approved by: Phuc Flower M.D. on 12/20/2024 at 17:12
== END ==
LOC: RAD 11:58
PROVIDERS: PCP Internal Medicine; Referring Provider Family Medicine; Visit Provider Family Medicine
DX: J98.11 Atelectasis (principal); R05.1 Acute cough
CPT/HCPCS: 71046

== ENCOUNTER → 2025-09-12 13:04 | Outpatient (CLI) | payer MEDICARE, OTHER, SELFPAY ==
[2024-09-09 09:38] VITALS: BMI 28.5
--- NOTE | 2025-09-12 13:07 | DI.RAD.S_ITS ---
PROCEDURE: XR KUB INDICATIONS: Kidney stones TECHNIQUE: One view of the abdomen acquired. COMPARISON: [facility], , XR KUB, 09/17/2024, 10:09. FINDINGS: Surgical changes and devices: Postsurgical changes are noted in lower pelvis. There is also prior left total hip arthroplasty. Bowel: Bowel gas pattern is normal. Soft tissues: Previously noted tiny calcification projecting in the lower pole left kidney is unchanged.. Visualized solid organ contours appear normal in size. Bones: No suspicious bony lesions. IMPRESSION: Stable tiny left renal stone unchanged from prior study. No gross pneumoperitoneum. Dictated by: Andrey Amin M.D. on 09/12/2025 at 16:13 Approved by: Andrey Amin M.D. on 09/12/2025 at 16:13
== END ==
LOC: RAD 13:07
PROVIDERS: PCP Internal Medicine; Referring Provider Internal Medicine; Visit Provider Internal Medicine
DX: N20.0 Calculus of kidney (principal); Z87.442 Personal history of urinary calculi; Z96.642 Presence of left artificial hip joint
CPT/HCPCS: 74018

== ENCOUNTER → 2025-09-30 10:08 | Outpatient (CLI) | payer MEDICARE, OTHER, SELFPAY ==
[2024-09-09 09:38] VITALS: BMI 28.5
[2025-09-30 10:25] LABS: INR 3.6 (0.9-1.3); Prothrombin Time 39.3 SECONDS (9.4-12.5)
== END ==
PROVIDERS: PCP Internal Medicine; Referring Provider Dermatology; Visit Provider Dermatology
DX: Z79.01 Long term (current) use of anticoagulants (principal)
CPT/HCPCS: 36415; 85610